=== PATIENT | male | born 1975 | race Caucasian/White ===

== ENCOUNTER 2016-08-21 07:57 | Emergency (ER) | payer SELFPAY ==
[2016-08-21 08:09] VITALS: TEMP 98.9
[2016-08-21] MEDS ORDERED: KETOROLAC 60 MG/2 ML VIAL IM STA (08:37)
--- NOTE | 2016-08-21 08:37 | ED ---
General Adult HPI - General Chief complaint: Skin/Abscess/Foreign Body Stated complaint: ABSCESS IN PELVIC AREA Time Seen by Provider: 08/21/16 08:16 Source: patient, RN notes reviewed Mode of arrival: ambulatory Limitations: no limitations - History of Present Illness Initial comments: Patient 41-year-old male who presents emergency room today with a chief complaint of abscess located to the suprapubic area. Does admit that his had multiple abscesses in the past has had MRSA. Does admit that this started 4 days ago small bump was gotten much larger over the last 2 days. Patient does admit that he's been trying some drainage out of the area with little relief. Patient does admit to pain locally but denies any other complaints or symptoms. Patient denies any recent fever, chills, shortness of breath, chest pain, back pain, abdominal pain, nausea or vomiting, numbness or tingling, dysuria or hematuria, constipation or diarrhea, headaches or visual changes, or any other complaints. - Related Data Previous Rx's Medication Instructions Recorded Naproxen [Naprosyn] 500 mg PO Q12HR #24 tab 06/28/15 Naproxen [Naprosyn] 500 mg PO Q12HR #24 tab 06/28/15 Sulfamethox-Tmp 800-160Mg [Bactrim 2 each PO Q12HR #40 tab 06/28/15 DS 800-160 mg] Sulfamethox-Tmp 800-160Mg [Bactrim 2 each PO Q12HR #40 tab 06/28/15 DS 800-160 mg] Ibuprofen [Motrin] 800 mg PO Q6HR PRN #30 tab 08/21/16 Sulfamethox-Tmp 800-160Mg [Bactrim 1 tab PO Q12HR #28 tab 08/21/16 DS 800-160 mg] Allergies Allergy/AdvReac Type Severity Reaction Status Date / Time No Known Allergies Allergy Verified 08/21/16 08:09 Review of Systems ROS Statement: Those systems with pertinent positive or pertinent negative responses have been documented in the HPI. ROS Other: All systems not noted in ROS Statement are negative. Past Medical History Additional Past Medical History / Comment(s): liver failure History of Any Multi-Drug Resistant Organisms: MRSA Date of last positivie culture/infection: 06/28/15 MDRO Source:: left second finger Past Surgical History: Tonsillectomy Past Psychological History: No Psychological Hx Reported Smoking Status: Current every day smoker Past Alcohol Use History: None Reported Past Drug Use History: None Reported General Exam Limitations: no limitations Course Vital Signs 08/21/16 08:06 Temperature 98.9 F Pulse Rate 90 Respiratory 20 Rate Blood Pressure 136/80 O2 Sat by Pulse 97 Oximetry Procedures - Procedures Initial comment: Procedure: Incision and drainage The skin overlying the abscess was prepped with Betadine, and anesthetized with 1% lidocaine without epinephrine. A #11 scalpel was then used to incise the abscess. Some purulent material was then extracted from the lesion. Iodoform packing gauze placed. Wound culture obtained. Gauze dressing placed on top, The patient tolerated the procedure well. Medical Decision Making - Medical Decision Making Patient's urinalysis unremarkable here in the emergency room culture currently pending. Patient mitts that he had some difficulty urinating earlier today and he thought may be due to the pressure of the abscess in this area. Patient's abscess drainage in the emergency room he tolerated procedure well. Started on antibiotics of Bactrim here in emergency room. Will be discharged home with ibuprofen. He does admit that he is a recovering alcoholic and does not want any stronger pain medicine. Patient will continue on antibiotics advised follow -up over the next 2 days. Advised return if any symptoms increase or worsen. Patient states understanding and is in agreement. Disposition Clinical Impression: Suprapubic abscess Disposition: HOME SELF-CARE Condition: Good Instructions: Abscess (ED) Additional Instructions: Please follow-up family doctor over the next days return here to emergency room symptoms increase or worsen. Please continue antibiotics as prescribed and pain medication as needed. Prescriptions: Ibuprofen [Motrin] 800 mg PO Q6HR PRN #30 tab PRN Reason: Pain Sulfamethox-Tmp 800-160Mg [Bactrim DS 800-160 mg] 1 tab PO Q12HR #28 tab Referrals: None,Stated [Primary Care Provider] - 1-2 days Killian Guajardo MD [REFERRING] - 1-2 days Time of Disposition: 09:56
[2016-08-21] MEDS ORDERED: SULFAMETH-TMP DS STARTER PACK 2 TAB BTL PO STA (09:21)
[2016-08-21 09:46] LABS: Amorphous Sediment,Urine Occasional /hpf; Appearance,Urine Turbid (Clear); Bilirubin,Urine Negative (Negative); Glucose,Urine (UA) Negative (Negative); Ketones,Urine Negative (Negative); Leukocyte Esterase,Urine Trace (Negative); Mucus,Urine Occasional /hpf; Nitrite,Urine Negative (Negative); PH, Urine 6.5 (5.0-8.0); Particle Count 19197; Protein,Urine Trace (Negative); Specific Gravity,Urine 1.015 (1.001-1.035); Squamous Epithelial Cell,Urine 1 /hpf (0-4); UA Billing (MACRO vs. MICRO) MICRO; Urobilinogen,Urine <2.0 mg/dL (<2.0); WBC,Urine 3 /hpf (0-5)
[2016-08-21 10:11] VITALS: BP 132/81; PULSE 67; RESP 18
== END 2016-08-21 10:10 | disposition home or self-care (01) ==
LOC: EC 07:57
DX: L02.211 Cutaneous abscess of abdominal wall (principal); F17.200 Nicotine dependence, unspecified, uncomplicated; Z87.19 Personal history of other diseases of the digestive system; Z86.14 Personal history of Methicillin resistant Staphylococcus aureus infection
CPT/HCPCS: 81001; 87070; 87086; 87205; 99283; 10060; 96372; J1885; 87077; 87186

== ENCOUNTER 2018-02-05 06:22 | Inpatient (IN) | payer OTHER ==
[2018-02-05] MEDS ORDERED: SODIUM CHLORIDE 0.9% 500 ML IV STA (07:31)
[2018-02-05] MEDS ORDERED: SODIUM CHLORIDE 0.9% 1,000 ML IV STA ×2 (07:31→08:48)
[2018-02-05 07:51] LABS: Basophils % (A) 0 %; Eosinophils # (A) 0.2 k/uL (0-0.7); Eosinophils % (A) 2 %; HCT 44.7 % (39.0-53.0); HGB 15.5 gm/dL (13.0-17.5); Lymphocytes # (A) 1.4 k/uL (1.0-4.8); Lymphocytes % (A) 21 %; MCH 30.9 pg (25.0-35.0); MCHC 34.8 g/dL (31.0-37.0); MCV 88.7 fL (80.0-100.0); Mean Platelet Volume 7.8; Monocytes # (A) 0.4 k/uL (0-1.0); Monocytes % (A) 5 %; Neutrophils # (A) 4.6 k/uL (1.3-7.7); Neutrophils % (A) 70 %; Platelet Count 110 k/uL (150-450); RBC 5.04 m/uL (4.30-5.90); RDW 13.7 % (11.5-15.5); WBC 6.7 k/uL (3.8-10.6)
[2018-02-05 07:59] LABS: ALT 31 U/L (21-72); AST 28 U/L (17-59); Albumin 3.8 g/dL (3.5-5.0); Alcohol <10 mg/dL; Alkaline Phosphatase 85 U/L (38-126); Anion Gap 6 mmol/L; Blood Urea Nitrogen 11 mg/dL (9-20); Calcium 8.8 mg/dL (8.4-10.2); Carbon Dioxide 24 mmol/L (22-30); Chloride 111 mmol/L (98-107); Glucose 100 mg/dL (74-99); Lipase 919 U/L (23-300); Magnesium 1.9 mg/dL (1.6-2.3); Phosphorus 2.4 mg/dL (2.5-4.5); Potassium 4.1 mmol/L (3.5-5.1); Sodium 141 mmol/L (137-145); Total Bilirubin 0.9 mg/dL (0.2-1.3); Total Protein 6.5 g/dL (6.3-8.2)
[2018-02-05 08:01] LABS: INR 1.2 (<1.2); Partial Thromboplastin Time 24.4 sec (22.0-30.0); Prothrombin Time 11.2 sec (9.0-12.0)
[2018-02-05 08:08] LABS: Creatine Kinase 28 U/L (55-170)
[2018-02-05 08:21] LABS: Creatine Kinase MB 0.3 ng/mL (0.0-2.4); Troponin I <0.012 ng/mL (0.000-0.034)
--- NOTE | 2018-02-05 08:28 | ED ---
General Adult HPI - General Chief complaint: Recheck/Abnormal Lab/Rx Stated complaint: Feeling weak Time Seen by Provider: 02/05/18 07:23 Source: patient, RN notes reviewed, old records reviewed Mode of arrival: ambulatory Limitations: no limitations - History of Present Illness Initial comments: This is a 42-year-old male to the ER for evaluation. This patient presents today for evaluation regards to not feeling well. Patient has remote history of alcoholism and liver issues, will require. Patient states feels similar to then. He just feels weak lightheaded dizzy nauseous. Denies recent alcohol abuse or drug abuse he does states is been feeling sick and weak for about 3 days. Again no fever travel history or sick contacts - Related Data Previous Rx's Medication Instructions Recorded Naproxen [Naprosyn] 500 mg PO Q12HR #24 tab 06/28/15 Naproxen [Naprosyn] 500 mg PO Q12HR #24 tab 06/28/15 Sulfamethox-Tmp 800-160Mg [Bactrim 2 each PO Q12HR #40 tab 06/28/15 DS 800-160 mg] Sulfamethox-Tmp 800-160Mg [Bactrim 2 each PO Q12HR #40 tab 06/28/15 DS 800-160 mg] Ibuprofen [Motrin] 800 mg PO Q6HR PRN #30 tab 08/21/16 Sulfamethox-Tmp 800-160Mg [Bactrim 1 tab PO Q12HR #28 tab 08/21/16 DS 800-160 mg] Allergies Allergy/AdvReac Type Severity Reaction Status Date / Time No Known Allergies Allergy Verified 02/05/18 06:35 Review of Systems ROS Statement: Those systems with pertinent positive or pertinent negative responses have been documented in the HPI. ROS Other: All systems not noted in ROS Statement are negative. Past Medical History Additional Past Medical History / Comment(s): liver failure, ETOH History of Any Multi-Drug Resistant Organisms: MRSA Date of last positivie culture/infection: 08/21/16 MDRO Source:: Abdomen Past Surgical History: Tonsillectomy Past Psychological History: No Psychological Hx Reported Smoking Status: Current every day smoker Past Alcohol Use History: None Reported Past Drug Use History: None Reported General Exam Limitations: no limitations General appearance: alert, in no apparent distress Head exam: Present: atraumatic, normocephalic, normal inspection Eye exam: Present: normal appearance, PERRL, EOMI. Absent: scleral icterus, conjunctival injection, periorbital swelling ENT exam: Present: normal exam, mucous membranes moist Neck exam: Present: normal inspection. Absent: tenderness, meningismus, lymphadenopathy Respiratory exam: Present: normal lung sounds bilaterally. Absent: respiratory distress, wheezes, rales, rhonchi, stridor Cardiovascular Exam: Present: regular rate, normal rhythm, normal heart sounds. Absent: systolic murmur, diastolic murmur, rubs, gallop, clicks GI/Abdominal exam: Present: soft, normal bowel sounds. Absent: distended, tenderness, guarding, rebound, rigid Extremities exam: Present: normal inspection, full ROM, normal capillary refill. Absent: tenderness, pedal edema, joint swelling, calf tenderness Back exam: Present: normal inspection Neurological exam: Present: alert, oriented X3, CN II-XII intact Psychiatric exam: Present: normal affect, normal mood Skin exam: Present: warm, dry, intact, normal color. Absent: rash Course Vital Signs 02/05/18 02/05/18 02/05/18 06:31 07:50 09:11 Temperature 98.3 F Pulse Rate 88 65 76 Respiratory 18 16 18 Rate Blood Pressure 134/94 123/75 144/84 O2 Sat by Pulse 99 95 97 Oximetry - Reevaluation(s) Reevaluation #1: 02/05/18 08:40 Medical records reviewed EKG Findings - EKG Comments: EKG Findings:: AG shows sinus rhythm rate of 70, VA 136, QRS 92, QTc 455 Medical Decision Making - Medical Decision Making 42 male the ER for evaluation of not feeling right, difficulty with activities. Patient states does not feel well for 3 days, significant weakness. Patient has elevated ammonia, will treat appropriately, patient has no history of liver failure secondary to alcohol abuse. Patient also has abdominal pain with nausea vomiting, elevated lipase, will admit for IV resuscitation - Lab Data Result diagrams: 02/05/18 07:07 02/05/18 07:07 Lab Results 02/05/18 02/05/18 02/05/18 Range/Units 07:07 07:07 07:07 WBC (3.8-10.6) k/uL RBC (4.30-5.90) m/uL Hgb (13.0-17.5) gm/dL Hct (39.0-53.0) % MCV (80.0-100.0) fL MCH (25.0-35.0) pg MCHC (31.0-37.0) g/dL RDW (11.5-15.5) % Plt Count (150-450) k/uL Neutrophils % % Lymphocytes % % Monocytes % % Eosinophils % % Basophils % % Neutrophils # (1.3-7.7) k/uL Lymphocytes # (1.0-4.8) k/uL Monocytes # (0-1.0) k/uL Eosinophils # (0-0.7) k/uL Basophils # (0-0.2) k/uL PT (9.0-12.0) sec INR (<1.2) APTT (22.0-30.0) sec Sodium 141 (137-145) mmol/L Potassium 4.1 (3.5-5.1) mmol/L Chloride 111 H (98-107) mmol/L Carbon Dioxide 24 (22-30) mmol/L Anion Gap 6 mmol/L BUN 11 (9-20) mg/dL Creatinine 0.67 (0.66-1.25) mg/dL Est GFR (CKD-EPI)AfAm >90 (>60 ml/min/1.73 sqM) Est GFR (CKD-EPI)NonAf >90 (>60 ml/min/1.73 sqM) Glucose 100 H (74-99) mg/dL Calcium 8.8 (8.4-10.2) mg/dL Phosphorus 2.4 L (2.5-4.5) mg/dL Magnesium 1.9 (1.6-2.3) mg/dL Total Bilirubin 0.9 (0.2-1.3) mg/dL AST 28 (17-59) U/L ALT 31 (21-72) U/L Alkaline Phosphatase 85 (38-126) U/L Ammonia 67 H (<30) umol/L Total Creatine Kinase 28 L (55-170) U/L CK-MB (CK-2) 0.3 (0.0-2.4) ng/mL CK-MB (CK-2) Rel Index 1.1 Troponin I <0.012 (0.000-0.034) ng/mL Total Protein 6.5 (6.3-8.2) g/dL Albumin 3.8 (3.5-5.0) g/dL Lipase 919 H (23-300) U/L TSH 1.750 (0.465-4.680) mIU/L Serum Alcohol <10 mg/dL 02/05/18 02/05/18 Range/Units 07:07 07:07 WBC 6.7 (3.8-10.6) k/uL RBC 5.04 (4.30-5.90) m/uL Hgb 15.5 (13.0-17.5) gm/dL Hct 44.7 (39.0-53.0) % MCV 88.7 (80.0-100.0) fL MCH 30.9 (25.0-35.0) pg MCHC 34.8 (31.0-37.0) g/dL RDW 13.7 (11.5-15.5) % Plt Count 110 L (150-450) k/uL Neutrophils % 70 % Lymphocytes % 21 % Monocytes % 5 % Eosinophils % 2 % Basophils % 0 % Neutrophils # 4.6 (1.3-7.7) k/uL Lymphocytes # 1.4 (1.0-4.8) k/uL Monocytes # 0.4 (0-1.0) k/uL Eosinophils # 0.2 (0-0.7) k/uL Basophils # 0.0 (0-0.2) k/uL PT 11.2 (9.0-12.0) sec INR 1.2 H (<1.2) APTT 24.4 (22.0-30.0) sec Sodium (137-145) mmol/L Potassium (3.5-5.1) mmol/L Chloride (98-107) mmol/L Carbon Dioxide (22-30) mmol/L Anion Gap mmol/L BUN (9-20) mg/dL Creatinine (0.66-1.25) mg/dL Est GFR (CKD-EPI)AfAm (>60 ml/min/1.73 sqM) Est GFR (CKD-EPI)NonAf (>60 ml/min/1.73 sqM) Glucose (74-99) mg/dL Calcium (8.4-10.2) mg/dL Phosphorus (2.5-4.5) mg/dL Magnesium (1.6-2.3) mg/dL Total Bilirubin (0.2-1.3) mg/dL AST (17-59) U/L ALT (21-72) U/L Alkaline Phosphatase (38-126) U/L Ammonia (<30) umol/L Total Creatine Kinase (55-170) U/L CK-MB (CK-2) (0.0-2.4) ng/mL CK-MB (CK-2) Rel Index Troponin I (0.000-0.034) ng/mL Total Protein (6.3-8.2) g/dL Albumin (3.5-5.0) g/dL Lipase (23-300) U/L TSH (0.465-4.680) mIU/L Serum Alcohol mg/dL Disposition Clinical Impression: Hyperammonemia, Liver failure, Hepatic encephalopathy, Weakness, Pancreatitis Disposition: ADMITTED IP TO THIS [facility] Condition: Good Is patient prescribed a controlled substance at d/c from ED?: No Referrals: None,Stated [Primary Care Provider] - 1-2 days
[2018-02-05] MEDS ORDERED: ONDANSETRON 4 MG/2 ML VIAL IVP STA (08:48)
[2018-02-05] MEDS ORDERED: LACTULOSE 20 GM/30 ML CUP PO ONE (08:48)
[2018-02-05] MEDS ORDERED: PANTOPRAZOLE 40 MG/10 ML VIAL IVP STA (08:48)
[2018-02-05] MEDS ORDERED: ONDANSETRON 4 MG/2 ML VIAL IVP PRN (09:36)
[2018-02-05] MEDS ORDERED: THIAMINE 100 MG/ML 2 ML VIAL IM STA (09:38)
[2018-02-05] MEDS ORDERED: LORazepam 2 MG/ML INJ IV PRN ×3 (09:38)
[2018-02-05 10:20] LABS: Appearance,Urine Cloudy (Clear); Bilirubin,Urine Negative (Negative); Blood,Urine Large (Negative); Color,Urine Dark Brown; Glucose,Urine (UA) Negative (Negative); Ketones,Urine Negative (Negative); Leukocyte Esterase,Urine Large (Negative); Mucus,Urine Rare /hpf; Nitrite,Urine Negative (Negative); PH, Urine 6.5 (5.0-8.0); Protein,Urine 1+ (Negative); RBC,Urine >182 /hpf (0-5); Specific Gravity,Urine 1.017 (1.001-1.035); WBC,Urine >182 /hpf (0-5)
[2018-02-05] MEDS ORDERED: diphenhydrAMINE 25 MG CAP PO PRN (11:33)
[2018-02-05] MEDS: cefTRIAXone IN SWFI 1,000 MG/10 ML SYRINGE IVP SCH (12:41)
[2018-02-05] MEDS: MULTIVITAMINS, THERA 1 EACH TAB PO SCH (12:41)
[2018-02-05 13:40] LABS: Amphetamine Screen,Urine Not Detected (NotDetected); Barbiturate Screen,Urine Not Detected (NotDetected); Benzodiazepines Screen,Urine Not Detected (NotDetected); Cocaine Screen,Urine Not Detected (NotDetected); Methadone Screen, Urine Not Detected (NotDetected); Opiate Screen,Urine Not Detected (NotDetected); Oxycodone Screen, Urine Not Detected (NotDetected); Phencyclidine Screen,Urine Not Detected (NotDetected); Tricyclic Antidepressant,Urine Not Detected (NotDetected); Urn Cannabinoid Scrn Not Detected (NotDetected)
[2018-02-05] MEDS ORDERED: ACETAMINOPHEN TAB 500 MG TAB PO PRN (14:44)
[2018-02-05] MEDS ORDERED: TEMAZEPAM 15 MG CAP PO PRN (14:44)
[2018-02-05] MEDS: SODIUM CHLORIDE 0.9% 1,000 ML IV SCH (16:18)
[2018-02-05] MEDS: THIAMINE 100 MG TAB PO SCH (16:18)
--- NOTE | 2018-02-05 18:30 | HP ---
HISTORY AND PHYSICAL DATE OF SERVICE: 02/05/2018 CHIEF COMPLAINTS: General weakness. HISTORY OF PRESENT ILLNESS: This 42-year-old gentleman with a past medical history of liver failure, history of EtOH MRSA, not being followed by primary care physician in the outpatient setting, presented complaining of generalized weakness and tired. The patient had remote history of alcohol intake and the patient was found to ammonia 67. Patient was admitted to the hospital for further evaluation and treatment. Patient also had features of UTI also. There is no history of fever, rigors. No history of headache, loss of consciousness or seizures. PAST MEDICAL HISTORY: Of liver failure, ETOH. History of MRSA. History of tonsillectomy. MEDICATIONS PRIOR TO ADMISSION: Include: 1. Benadryl 50 mg q.h.s. p.r.n. 2. Tumeric 500 mg p.o. daily. 3. Motrin 200 mg t.i.d. p.r.n. ALLERGIES: None. FAMILY HISTORY: No history of heart disease or strokes in the family. SOCIAL HISTORY: History of smoking. No history of current alcohol. REVIEW OF SYSTEMS: ENT: No diminished hearing or vision. CARDIOVASCULAR: No angina or palpitations. RESPIRATORY: As mentioned earlier. GI: No nausea or vomiting. : No dysuria. CENTRAL NERVOUS SYSTEM: No numbness or weakness. ALLERGY/IMMUNOLOGY: No asthma or hayfever. MUSCULOSKELETAL as mentioned earlier. HEMATOLOGY/ONCOLOGY: No history of anemia. ENDOCRINE: No history of diabetes or hypothyroidism. CONSTITUTIONAL: As mentioned earlier. Dermatology: Negative. Rheumatology: Negative. Psychiatry: As mentioned earlier. PHYSICAL EXAMINATION: GENERAL: The patient is alert and oriented times three. VITAL SIGNS: The pulse is 70, blood pressure 139/85, respirations 16, temperature 97.9, pulse ox 98 percent on room air. HEENT: Conjunctivae normal. Oral mucosa moist. NECK is no jugular venous distention. No carotid bruit. No lymph node enlargement. Cardiovascular system: S1, S2 muffled. No S3, no S4. RESPIRATORY: Breath sounds diminished in the bases. No rhonchi. No crackles. ABDOMEN: Soft, nontender. No mass palpable. No hepatosplenomegaly. LEGS: No edema. No swelling. NERVOUS SYSTEM: Higher functions as mentioned earlier. Moves all 4 limbs. No focal motor and sensory deficits. Dermatology: Negative. Rheumatology: Negative. Psychiatry: As mentioned earlier. Skin: No ulcer, rashes or bleeding. LABS: WBC 6.7, hemoglobin 15.5, platelets 110. Sodium 141, potassium 4.1. UA noted. ASSESSMENT: 1. Generalized weakness. Possible acute on chronic metabolic encephalopathy. 2. History of chronic liver disease, history of ETOH. 3. History of thrombocytopenia. 4. History of liver failure. 5. History of MRSA. 6. History of continued ongoing nicotine dependence. RECOMMENDATIONS AND DISCUSSION: In this 43-year-old gentleman who presented with multiple complex medical issues, we will monitor the patient closely, continue the current medications, management and symptomatic treatment. Otherwise, at this time, I would also recommend gastroenterology consultation. Otherwise monitor ammonia and lactulose. Guarded prognosis because of multiple complex medical conditions. Further recommendations to follow. Lactulose to be given at least to obtain 2-3 bowel movements per day. MMRAMONL / CARLOSN: [id number] /
[2018-02-05] MEDS: LACTULOSE 20 GM/30 ML CUP PO SCH (21:06)
[2018-02-06] MEDS: SODIUM CHLORIDE 0.9% 1,000 ML IV SCH ×2 (06:42→16:44)
[2018-02-06] MEDS: PANTOPRAZOLE 40 MG/10 ML VIAL IVP SCH (07:53)
[2018-02-06] MEDS: cefTRIAXone IN SWFI 1,000 MG/10 ML SYRINGE IVP SCH (07:53)
[2018-02-06] MEDS: MULTIVITAMINS, THERA 1 EACH TAB PO SCH (07:53)
[2018-02-06] MEDS: LACTULOSE 20 GM/30 ML CUP PO SCH ×2 (07:53→13:04)
[2018-02-06] MEDS: THIAMINE 100 MG TAB PO SCH ×2 (07:54→16:42)
[2018-02-06 08:28] LABS: Basophils % (A) 1 %; Eosinophils # (A) 0.1 k/uL (0-0.7); Eosinophils % (A) 2 %; HCT 41.8 % (39.0-53.0); HGB 14.4 gm/dL (13.0-17.5); Lymphocytes # (A) 1.1 k/uL (1.0-4.8); Lymphocytes % (A) 19 %; MCH 30.6 pg (25.0-35.0); MCHC 34.4 g/dL (31.0-37.0); Mean Platelet Volume 7.8; Monocytes # (A) 0.3 k/uL (0-1.0); Monocytes % (A) 6 %; Neutrophils # (A) 4.1 k/uL (1.3-7.7); Neutrophils % (A) 71 %; RBC 4.69 m/uL (4.30-5.90); RDW 13.4 % (11.5-15.5); WBC 5.8 k/uL (3.8-10.6)
[2018-02-06 08:31] LABS: Platelet Count 95 k/uL (150-450)
[2018-02-06 08:37] LABS: ALT 30 U/L (21-72); AST 25 U/L (17-59); Albumin 3.3 g/dL (3.5-5.0); Alkaline Phosphatase 76 U/L (38-126); Anion Gap 4 mmol/L; Blood Urea Nitrogen 9 mg/dL (9-20); Calcium 8.1 mg/dL (8.4-10.2); Carbon Dioxide 23 mmol/L (22-30); Chloride 115 mmol/L (98-107); Glucose 90 mg/dL (74-99); Potassium 4.1 mmol/L (3.5-5.1); Sodium 142 mmol/L (137-145); Total Bilirubin 0.7 mg/dL (0.2-1.3); Total Protein 5.8 g/dL (6.3-8.2)
--- NOTE | 2018-02-06 11:56 | XR ---
EXAMINATION TYPE: XR chest 1V portable DATE OF EXAM: 02/06/2018 CLINICAL HISTORY: Difficulty breathing and CHF. Pancreatitis. TECHNIQUE: Single AP portable upright view of the chest is obtained. COMPARISON: Chest x-ray from one day earlier FINDINGS: There is no focal air space opacity, pleural effusion, or pneumothorax seen. The cardiac silhouette size is within normal limits. The osseous structures are intact. IMPRESSION: No acute process.
--- NOTE | 2018-02-06 17:17 | P.PN ---
Subjective Progress Note Date: 02/06/18 Progress note being dictated for Dr. Coto Interval history: This is a 42-year-old gentleman admitted with generalized weakness, acute on chronic metabolic encephalopathy, elevated ammonia with history of chronic liver disease, history of EtOH abuse, acute UTI and multiple other medical issues. Afebrile, normal WBC, urine culture pending. Maintained on empiric antibiotics. Continues on lactulose with ammonia improving. Elevated lipase on admission in the 900s. GI consult in place with recommendations pending. Ambulating to and from bathroom, tolerating exertion well. Objective - Vital Signs Vital signs: Vital Signs Temp 97.2 F L 02/06/18 15:00 Pulse 80 02/06/18 15:00 Resp 17 02/06/18 15:47 BP 113/69 02/06/18 15:00 Pulse Ox 97 02/06/18 15:00 Intake & Output 02/05/18 02/06/18 02/06/18 18:59 06:59 18:59 Intake Total 200 200 Output Total 500 500 Balance -300 -300 Weight 90.718 kg Intake: Amount of Fluid Infused ( 200 ml) Oral 200 Output: Urine 500 500 Other: Voiding Method Toilet Toilet Toilet # Voids 2 2 # Bowel Movements 2 1 - Exam PHYSICAL EXAM: VITAL SIGNS: As above GENERAL: Sitting up at side of bed, no acute distress. HEENT: Conjunctivae normal. eyes normal. NECK: No JVD. No thyroid enlargement. No LNs CARDIOVASCULAR: S1, S2 muffled. No murmur RESPIRATION: Breath sounds diminished in the bases.No rhonchi or crackles. No bronchial breathing. ABDOMEN: Soft, nontender . No guarding. no masses palpable. No hepatosplenomegaly .Bowel sounds heard. LEGS: No edema. no swelling. PSYCHIATRY: Alert and oriented -3, mood and affect normal. NERVOUS SYSTEM: Cranial N 2-12 grossly normal. Moves all 4 limbs. Diffuse weakness No focal deficits. Skin: no ulcer no rash Joints: No active swelling. No inflammation. Lymphatic system. No LN neck axilla or groin. - Labs CBC & Chem 7: 02/06/18 07:57 02/06/18 07:57 Labs: Abnormal Lab Results - Last 24 Hours (Table) 02/06/18 02/06/18 02/06/18 Range/Units 07:57 07:57 07:57 Plt Count 95 L (150-450) k/uL Chloride 115 H (98-107) mmol/L Creatinine 0.63 L (0.66-1.25) mg/dL Calcium 8.1 L (8.4-10.2) mg/dL Ammonia 39 H (<30) umol/L Total Protein 5.8 L (6.3-8.2) g/dL Albumin 3.3 L (3.5-5.0) g/dL Microbiology - Last 24 Hours (Table) 02/05/18 11:56 Blood Culture - Preliminary Blood No Growth after 24 hours 02/05/18 10:04 Urine Culture - Preliminary Urine,Voided Assessment and Plan Assessment: 1. Generalized weakness, possible acute on chronic metabolic encephalopathy 2. Chronic liver disease, history of EtOH abuse 3. Continued ongoing nicotine dependence 4. History of liver failure 5. History of MRSA Plan: Continue on current medication regime ,monitoring and symptomatic treatment. Maintain on lactulose, titrating to 2-3 bowel movements daily. GI consult in place with recommendations pending. Discharge planning in progress. The impression and plan of care has been dictated as directed. : I performed a history and examination of this patient, discussed the same with the dictator. I agree with the dictator's note ,documented as a scribe. Any additional findings or plans will be noted.
--- NOTE | 2018-02-06 17:55 | P.CONS ---
History of Present Illness - Reason for Consult Consult date: 02/06/18 History of acute liver failure, confusion Requesting physician: Aurora Coto - Chief Complaint Weak, lightheaded, dizzy and nauseated - History of Present Illness The patient is a 42-year-old male with a prior history of heavy alcohol use resulting in hospitalization for acute alcoholic hepatitis who is currently been abstinent from alcohol use for years, he presents with complaints of not feeling well. Patient reports that over the past 3 days he has been weak, lightheaded, and dizzy. He reports hypersomnolence and that he had been sleeping for long periods causing him to miss work. The patient reports associated nausea without vomiting. He denies any current alcohol use, no sick contacts, travel or unusual foods. He said no vomiting, no change in his bowel habits and no abdominal pain. The patient has however reported a decrease in his appetite. On presentation the patient had a normal INR of 1.2, total bilirubin 0.9, alkaline phosphatase 85, AST 27 and ALP 31 with a negative talk screening. The patient was found to have a mildly elevated ammonia of 67 and a elevated lipase of 919. The patient has been treated with lactulose and reports feeling better. He is tolerating his diet, but still not eating as much as normal. The patient has not followed up after being treated for alcoholic hepatitis in the past. He is a current smoker. He does report daily use of Motrin, twice daily. Review of Systems REVIEW OF SYSTEMS: CARDIOPULMONARY: No chest pain or shortness of breath. GENITOURINARY: No dysuria or hematuria. MUSCULOSKELETAL: Unremarkable. SKIN: Patient has tattoos on his chest and arms. He also has a rash on his chest. ENDOCRINE: Unremarkable. PSYCHIATRIC: Unremarkable. NEUROLOGY: Somnolence, dizziness. ENT: Vision unremarkable. CONSTITUTIONAL: No recent weight loss. No fever, chills, night sweats. Past Medical History Additional Past Medical History / Comment(s): liver failure, ETOH History of Any Multi-Drug Resistant Organisms: MRSA Year Discovered:: 08/21/16 MDRO Source:: Abdomen Past Surgical History: Tonsillectomy Past Psychological History: No Psychological Hx Reported Smoking Status: Current every day smoker Past Alcohol Use History: None Reported Past Drug Use History: None Reported Medications and Allergies Home Medications Medication Instructions Recorded Confirmed Type Ibuprofen [Motrin Ib] 800 mg PO TID PRN 02/05/18 02/05/18 History Turmeric Root Extract [Turmeric] 500 mg PO DAILY 02/05/18 02/05/18 History diphenhydrAMINE HCL [Benadryl] 50 mg PO HS PRN 02/05/18 02/05/18 History Allergies Allergy/AdvReac Type Severity Reaction Status Date / Time No Known Allergies Allergy Verified 02/05/18 10:22 Physical Exam Vitals: Vital Signs Temp Pulse Resp BP Pulse Ox 02/06/18 15:47 17 02/06/18 15:00 97.2 F L 80 17 113/69 97 02/06/18 07:00 97.2 F L 67 18 127/74 97 02/05/18 23:00 97.5 F L 67 18 108/67 98 Intake and Output 02/06/18 02/06/18 02/06/18 06:59 14:59 22:59 Intake Total 200 Output Total 500 Balance -300 Intake: Oral 200 Output: Urine 500 Other: Voiding Method Toilet Toilet # Voids 2 2 # Bowel Movements 1 Weight 90.718 kg 90.718 kg On physical examination, patient appears comfortable in no apparent distress. Vital signs are stable. HEENT: Unremarkable. Conjunctivae pink. Sclerae anicteric. Oral cavity no lesions. NECK: No JVD or lymph node enlargement. CHEST: Clear to auscultation. HEART: Regular rate and rhythm. ABDOMEN: Soft. Bowel sounds are positive. No organomegaly. EXTREMITIES: No pedal edema. SKIN: No rashes. NEUROLOGIC: Alert and oriented x3. No focal deficits. No asterixis. Results CBC & Chem 7: 02/06/18 07:57 02/06/18 07:57 Labs: Abnormal Lab Results - Last 24 Hours (Table) 02/06/18 02/06/18 02/06/18 Range/Units 07:57 07:57 07:57 Plt Count 95 L (150-450) k/uL Chloride 115 H (98-107) mmol/L Creatinine 0.63 L (0.66-1.25) mg/dL Calcium 8.1 L (8.4-10.2) mg/dL Ammonia 39 H (<30) umol/L Total Protein 5.8 L (6.3-8.2) g/dL Albumin 3.3 L (3.5-5.0) g/dL Microbiology - Last 24 Hours (Table) 02/05/18 11:56 Blood Culture - Preliminary Blood No Growth after 24 hours 02/05/18 10:04 Urine Culture - Preliminary Urine,Voided Assessment and Plan (1) Hyperammonemia Narrative/Plan: Unclear if this is secondary to hepatic encephalopathy as the patient's INR and bilirubin are consistent with retained synthetic function of the liver, however depressed platelets do suggest some degree of portal hypertension. The patient also reports that his symptoms were similar to prior episodes of encephalopathy with hypersomnolence and fatigue. He is also improved on treatment with lactulose therapy, and it is therefore reasonable to continue current management. Current Visit: Yes Status: Acute Code(s): E72.20 - DISORDER OF UREA CYCLE METABOLISM, UNSPECIFIED SNOMED Code(s): 9205071 (2) Elevated lipase Narrative/Plan: Unknown etiology in a patient who does not report typical pain associated with pancreatitis. Elevation also be caused by trauma, pancreatic instrumentation, medications, neoplasm, however the patient's history is not consistent with any of these. Will repeat lipase level and consider further imaging if it remains elevated. Current Visit: Yes Status: Acute Code(s): R74.8 - ABNORMAL LEVELS OF OTHER SERUM ENZYMES SNOMED Code(s): 462869652 (3) History of acute alcoholic hepatitis Narrative/Plan: Patient has history of alcohol hepatitis, however at this time bilirubin and INR are not consistent with a cirrhotic liver. However thrombocytopenia was suggest some degree of portal hypertension. This has been discussed with the patient would benefit from a fibroscan as an outpatient in order to diagnose any underlying hepatic fibrosis in the setting of heavy alcohol use in the past. Current Visit: Yes Status: Acute Code(s): Z87.19 - PERSONAL HISTORY OF OTHER DISEASES OF THE DIGESTIVE SYSTEM SNOMED Code(s): 817934041 (4) History of alcohol abuse Narrative/Plan: Currently abstinent (patient states he has not drank alcohol in years). Current Visit: Yes Status: Acute Code(s): Z87.898 - PERSONAL HISTORY OF OTHER SPECIFIED CONDITIONS SNOMED Code(s): 174425839 Plan: Continue supportive care Okay for diet We will repeat lipase, the patient will again be cautioned on any medications which are associated with elevation in its level. Can consider further imaging if lipase remains elevated. -Continue lactulose, titrated to 2-3 bowel movements daily Outpatient follow-up, would benefit from fibroscan -Continue alcohol abstinence -Thank you for the opportunity to participate in the care of this patient we will continue to follow
[2018-02-06 22:41] VITALS: RESP 16
[2018-02-07] MEDS: SODIUM CHLORIDE 0.9% 1,000 ML IV SCH (04:44)
[2018-02-07 06:08] VITALS: BP 109/77; PULSE 63; TEMP 97.3
[2018-02-07] MEDS: PANTOPRAZOLE 40 MG/10 ML VIAL IVP SCH (08:07)
[2018-02-07] MEDS: LACTULOSE 20 GM/30 ML CUP PO SCH (08:07)
[2018-02-07] MEDS: cefTRIAXone IN SWFI 1,000 MG/10 ML SYRINGE IVP SCH (08:24)
--- NOTE | 2018-02-07 08:33 | P.PN ---
<Anay Alvarez - Last Filed: 02/07/18 08:31> Subjective Progress Note Date: 02/07/18 Principal diagnosis: History of acute liver failure confusion Feels well. Denies abdominal pain. Tolerating diet. Ammonia normalized 17. Receiving antibiotics for UTI. Objective - Vital Signs Vital signs: Vital Signs Temp 97.3 F L 02/07/18 06:07 Pulse 63 02/07/18 06:07 Resp 16 02/07/18 06:07 BP 109/77 02/07/18 06:07 Pulse Ox 99 02/07/18 06:07 Intake & Output 02/06/18 02/07/18 02/07/18 18:59 06:59 18:59 Intake Total 200 Output Total 500 Balance -300 Weight 90.718 kg 90.718 kg Intake: Oral 200 Output: Urine 500 Other: Voiding Method Toilet Toilet # Voids 2 2 # Bowel Movements 1 - Exam General appearance: The patient is alert, oriented, in no acute distress. HET: Head is normocephalic and atraumatic. Pupils are equal and reactive. Oropharynx is clear without lesions. Neck: Supple without lymphadenopathy. Trachea midline. Heart: S1 S2. Regular rate and rhythm. Lungs: No crackles or wheezes are heard. Abdomen: Soft, nontender, nondistended with bowel sounds. No peritoneal signs. No palpable organomegaly or masses. Extremities: Normal skin color and turgor. No cyanosis, rash, ulceration, clubbing, or edema. Radial and pedal pulses are 2/4 bilaterally. Neurological: No focal deficits. Strength and sensation are grossly intact. - Labs CBC & Chem 7: 02/06/18 07:57 02/06/18 07:57 Labs: Abnormal Lab Results - Last 24 Hours (Table) 02/06/18 02/06/18 Range/Units 07:57 07:57 Plt Count 95 L (150-450) k/uL Chloride 115 H (98-107) mmol/L Creatinine 0.63 L (0.66-1.25) mg/dL Calcium 8.1 L (8.4-10.2) mg/dL Total Protein 5.8 L (6.3-8.2) g/dL Albumin 3.3 L (3.5-5.0) g/dL Microbiology - Last 24 Hours (Table) 02/05/18 11:56 Blood Culture - Preliminary Blood No Growth after 24 hours Assessment and Plan (1) Hyperammonemia Status: Acute Code(s): E72.20 - DISORDER OF UREA CYCLE METABOLISM, UNSPECIFIED SNOMED Code(s): 5648847 (2) Elevated lipase Status: Acute Code(s): R74.8 - ABNORMAL LEVELS OF OTHER SERUM ENZYMES SNOMED Code(s): 099500095 (3) History of acute alcoholic hepatitis Status: Acute Code(s): Z87.19 - PERSONAL HISTORY OF OTHER DISEASES OF THE DIGESTIVE SYSTEM SNOMED Code(s): 186764717 (4) History of alcohol abuse Status: Acute Code(s): Z87.898 - PERSONAL HISTORY OF OTHER SPECIFIED CONDITIONS SNOMED Code(s): 701472564 Plan: 1. Ammonia has normalized. Diet as tolerated. Agreeable for discharge as long as morning chemistries are stable. Continue lactulose titrate to 3 bowel movements daily. Return to office in 2 weeks for reevaluation. Continue alcohol abstinence. We'll follow as needed. Assessment and plan a care discussed with Dr. Cook <Nithin Cook - Last Filed: 02/10/18 10:23> Objective - Vital Signs Vital signs: Vital Signs Temp 97.3 F L 02/07/18 06:07 Pulse 63 02/07/18 06:07 Resp 16 02/07/18 06:07 BP 109/77 02/07/18 06:07 Pulse Ox 99 02/07/18 06:07 - Labs CBC & Chem 7: 02/07/18 07:53 02/07/18 07:53 Labs: Microbiology - Last 24 Hours (Table) 02/05/18 11:56 Blood Culture - Preliminary Blood No Growth after 96 hours Assessment and Plan (1) Hyperammonemia Status: Acute Code(s): E72.20 - DISORDER OF UREA CYCLE METABOLISM, UNSPECIFIED SNOMED Code(s): 6840702 (2) Elevated lipase Status: Acute Code(s): R74.8 - ABNORMAL LEVELS OF OTHER SERUM ENZYMES SNOMED Code(s): 547445960 (3) History of acute alcoholic hepatitis Status: Acute Code(s): Z87.19 - PERSONAL HISTORY OF OTHER DISEASES OF THE DIGESTIVE SYSTEM SNOMED Code(s): 763574676 (4) History of alcohol abuse Status: Acute Code(s): Z87.898 - PERSONAL HISTORY OF OTHER SPECIFIED CONDITIONS SNOMED Code(s): 725517353 Plan: The patient has been seen and evaluated, and the plan of care discussed. I agree with the above recommendations and assessment and plan.
[2018-02-07 08:44] LABS: Basophils % (A) 0 %; Eosinophils # (A) 0.1 k/uL (0-0.7); Eosinophils % (A) 2 %; HCT 39.9 % (39.0-53.0); HGB 13.7 gm/dL (13.0-17.5); Lymphocytes # (A) 1.1 k/uL (1.0-4.8); Lymphocytes % (A) 18 %; MCH 31.1 pg (25.0-35.0); MCHC 34.4 g/dL (31.0-37.0); MCV 90.4 fL (80.0-100.0); Mean Platelet Volume 8.7; Monocytes # (A) 0.3 k/uL (0-1.0); Monocytes % (A) 5 %; Neutrophils # (A) 4.4 k/uL (1.3-7.7); Neutrophils % (A) 73 %; RBC 4.41 m/uL (4.30-5.90); RDW 13.4 % (11.5-15.5); WBC 5.9 k/uL (3.8-10.6)
[2018-02-07 08:53] LABS: Platelet Count 75 k/uL (150-450)
[2018-02-07 09:04] LABS: ALT 42 U/L (21-72); AST 35 U/L (17-59); Alkaline Phosphatase 71 U/L (38-126); Anion Gap 4 mmol/L; Blood Urea Nitrogen 8 mg/dL (9-20); Carbon Dioxide 23 mmol/L (22-30); Chloride 114 mmol/L (98-107); Glucose 80 mg/dL (74-99); Lipase 59 U/L (23-300); Potassium 4.2 mmol/L (3.5-5.1); Sodium 141 mmol/L (137-145); Total Bilirubin 1.1 mg/dL (0.2-1.3); Total Protein 5.4 g/dL (6.3-8.2)
[2018-02-07] MEDS: MULTIVITAMINS, THERA 1 EACH TAB PO SCH (12:31)
[2018-02-07] MEDS: THIAMINE 100 MG TAB PO SCH (12:31)
--- NOTE | 2018-02-08 06:09 | DS ---
DISCHARGE SUMMARY DATE OF SERVICE: 02/07/2018 FINAL DIAGNOSES: 1. Generalized weakness, possible acute on chronic metabolic encephalopathy, possible hepatic encephalopathy. 2. Chronic liver disease, history of EtOH abuse. 3. Continued ongoing nicotine dependence. 4. History of liver failure. 5. History of methicillin-resistant Staphylococcus aureus. DISCHARGE DISPOSITION: The patient will be discharged in stable condition with guarded prognosis. HISTORY OF PRESENT ILLNESS: This 42-year-old gentleman with a past medical history of multiple medical problems admitted with acute on chronic metabolic encephalopathy and history of EtOH abuse. The patient was treated symptomatically. Patient improved significantly. Ammonia improved from 67 to 39. The patient has also UTI. Patient is being discharged home in stable condition. DISCHARGE ADVICE: 1. Diet is cardiac diet. 2. Activity limited until followup. 3. Follow up with Dr. Jennifer Darnell in 2 to 3 days. 4. Follow up with the digital solution architect as recommended. Medications are: 1. Benadryl p.r.n. 50 mg at bedtime. 2. Turmeric as before. 3. Ceftin 500 mg p.o. b.i.d. for 5 days. 4. Lactulose 30 grams p.o. b.i.d. p.r.n. 5. Multivitamins 1 p.o. daily. 6. Thiamine 100 mg p.o. daily. Once again, the patient will be discharged in a stable condition with guarded prognosis. MMRAMONL / EFRAIN: [id number] /
== END 2018-02-07 14:36 | disposition home or self-care (01) | DRG 441 ==
LOC: EC 06:22 → 4MS4W 09:35
PROVIDERS: ADMIT Hospitalist; ATTEND Hospitalist
DX: K72.90 Hepatic failure, unspecified without coma (principal); G93.41 Metabolic encephalopathy; E72.20 Disorder of urea cycle metabolism, unspecified; N39.0 Urinary tract infection, site not specified; D69.6 Thrombocytopenia, unspecified; F10.10 Alcohol abuse, uncomplicated; F17.200 Nicotine dependence, unspecified, uncomplicated; G47.10 Hypersomnia, unspecified; K74.0 Hepatic fibrosis; Z86.14 Personal history of Methicillin resistant Staphylococcus aureus infection
CPT/HCPCS: 36415; 71045; 80053; 80306; 80320; 81001; 82140; 82550; 82553; 83690; 83735; 84100; 84443; 84484; 85025; 85610; 85730; 87040; 87077; 87086; 87186; 93005; 96361; 96374; 96375; 99285

== ENCOUNTER 2021-12-26 16:47 | Inpatient (IN) | payer OTHER ==
[2021-12-26] MEDS ORDERED: SODIUM CHLORIDE 0.9% 1,000 ML IV STA (16:58)
[2021-12-26] MEDS ORDERED: FOLIC ACID 1 MG TAB PO STA (17:06)
[2021-12-26] MEDS ORDERED: THIAMINE 100 MG/ML 2 ML VIAL IVP STA (17:06)
--- NOTE | 2021-12-26 17:06 | ED ---
Altered Mental Status HPI - General Chief Complaint: Altered Mental Status Stated Complaint: mental health Time Seen by Provider: 12/26/21 16:49 Source: EMS, RN notes reviewed Mode of arrival: EMS - History of Present Illness Initial Comments: This is a pleasant 46-year-old male history of polysubstance abuse. Patient presents to the emergency department today stating that he has been having delusions, auditory and visual hallucinations, and tremors. Patient uncertain if he used methamphetamine or cocaine yesterday. Patient states he usually drinks quite a bit of alcohol. He states he usually drinks 09/23/2023 ounce beers per day. States his last drink was about 48 hours ago. Patient denies any seizure activity. Patient states that he was not feeling safe at home and thought somebody may be after him. Patient ended up running from his apartment complex. Patient went to a local [employer] and was seen by local licensed loan officer assistant. He was advised that he come to the ER for evaluation. He is denying any suicidality or homicidality. No headache, no fever or chills, no changes in vision or hearing, no sore throat or difficulty with speech, no neck pain, no chest pain or shortness of breath, no abdominal pain, no nausea or vomiting, no changes in urination or bowel movements, no numbness or tingling, no extremity pain, no skin rashes or lesions. Patient does have superficial abrasions on both legs. - Related Data Home Medications Medication Instructions Recorded Confirmed No Known Home Medications 12/26/21 12/26/21 Allergies Allergy/AdvReac Type Severity Reaction Status Date / Time No Known Allergies Allergy Verified 12/26/21 18:14 Review of Systems ROS Statement: Those systems with pertinent positive or pertinent negative responses have been documented in the HPI. ROS Other: All systems not noted in ROS Statement are negative. Past Medical History Additional Past Medical History / Comment(s): liver failure, ETOH History of Any Multi-Drug Resistant Organisms: MRSA Date of last positivie culture/infection: 08/21/16 MDRO Source:: Abdomen Past Surgical History: Tonsillectomy Past Psychological History: No Psychological Hx Reported Smoking Status: Current every day smoker Past Alcohol Use History: Daily, Heavy Past Drug Use History: Cocaine, Marijuana, Methamphetamine General Exam - General Exam Comments Initial Comments: Anxious appearing 46-year-old male, does not appear to be ill or toxic. Vital signs reviewed General appearance: alert, anxious Head exam: Present: atraumatic, normocephalic, normal inspection Eye exam: Present: normal appearance, PERRL, EOMI. Absent: scleral icterus, conjunctival injection, periorbital swelling ENT exam: Present: normal exam, normal oropharynx, mucous membranes moist. Absent: mucous membranes dry Neck exam: Present: normal inspection, full ROM. Absent: tenderness, meningismus, lymphadenopathy Respiratory exam: Present: normal lung sounds bilaterally. Absent: respiratory distress, wheezes, rales, rhonchi, stridor Cardiovascular Exam: Present: regular rate, normal rhythm, normal heart sounds. Absent: systolic murmur, diastolic murmur, rubs, gallop, clicks GI/Abdominal exam: Present: soft, normal bowel sounds. Absent: distended, tenderness, guarding, rebound, rigid Extremities exam: Present: normal inspection, full ROM, normal capillary refill. Absent: tenderness, pedal edema, joint swelling, calf tenderness Back exam: Present: normal inspection Neurological exam: Present: alert, oriented X3, CN II-XII intact, other (Gen. tremor noted). Absent: motor sensory deficit Psychiatric exam: Present: agitated (Mild), anxious. Absent: homicidal ideation, suicidal ideation (Denies) Skin exam: Present: warm, dry, intact, normal color. Absent: rash Course Vital Signs 12/26/21 12/26/21 16:49 18:58 Temperature 98.3 F Pulse Rate 104 H 97 Respiratory 28 H 18 Rate Blood Pressure 129/95 127/75 O2 Sat by Pulse 98 97 Oximetry - Reevaluation(s) Reevaluation #1: 12/26/21 18:31 Medical record is reviewed Symptoms are improved here in the emergency department Patient is informed of results and questions answered Patient in no distress Medical Decision Making - Medical Decision Making Patient presents with agitation, anxiety, notable tremor, has been 48 hours since his last alcoholic drink. No history of alcohol abuse as well as other polysubstance abuse to include methamphetamine and cocaine. Having some delusions and hallucinations. Denying any suicidal ideation or homicidal shannan ation. Patient's initial CIWA score is 14 due to visual disturbance, auditory disturbances, tactile disturbances, agitation, anxiety, notable tremor, mild sweating. Patient presentation consistent with alcohol withdrawal. Workup, plan for admission. 5 mg of diazepam initially. Case discussed in detail with Dr. Patricio words admission of the patient for alcohol withdrawal, hypokalemia, and hyperammonemia The case was discussed in detail with ED attending physician. Presentation, findings, treatment plan discussed in detail. Reordering Clerk Dr. Freed - Lab Data Result diagrams: 12/26/21 17:19 12/26/21 17:19 Lab Results 12/26/21 12/26/21 12/26/21 Range/Units 17:19 17:19 17:19 WBC 3.9 (3.8-10.6) k/uL RBC 4.36 (4.30-5.90) m/uL Hgb 13.6 (13.0-17.5) gm/dL Hct 40.4 (39.0-53.0) % MCV 92.8 (80.0-100.0) fL MCH 31.3 (25.0-35.0) pg MCHC 33.8 (31.0-37.0) g/dL RDW 14.4 (11.5-15.5) % Plt Count 57 L (150-450) k/uL MPV 9.8 Neutrophils % 78 % Lymphocytes % 10 % Monocytes % 8 % Eosinophils % 1 % Basophils % 1 % Neutrophils # 3.0 (1.3-7.7) k/uL Lymphocytes # 0.4 L (1.0-4.8) k/uL Monocytes # 0.3 (0-1.0) k/uL Eosinophils # 0.0 (0-0.7) k/uL Basophils # 0.0 (0-0.2) k/uL Manual Slide Review Performed PT 13.5 H (9.0-12.0) sec INR 1.3 H (<1.2) Sodium (137-145) mmol/L Potassium (3.5-5.1) mmol/L Chloride (98-107) mmol/L Carbon Dioxide (22-30) mmol/L Anion Gap mmol/L BUN (9-20) mg/dL Creatinine (0.66-1.25) mg/dL Est GFR (CKD-EPI)AfAm (>60 ml/min/1.73 sqM) Est GFR (CKD-EPI)NonAf (>60 ml/min/1.73 sqM) Glucose (74-99) mg/dL Calcium (8.4-10.2) mg/dL Total Bilirubin (0.2-1.3) mg/dL Conjugated Bilirubin (0.0-0.3) mg/dL Unconjugated Bilirubin (0.0-1.1) mg/dL Delta Bilirubin (0.0-0.2) mg/dL AST (17-59) U/L ALT (4-49) U/L Alkaline Phosphatase (38-126) U/L Ammonia (<30) umol/L Troponin I (0.000-0.034) ng/mL Total Protein (6.3-8.2) g/dL Albumin (3.5-5.0) g/dL Urine Color Urine Appearance (Clear) Urine pH (5.0-8.0) Ur Specific [place] (1.001-1.035) Urine Protein (Negative) Urine Glucose (UA) (Negative) Urine Ketones (Negative) Urine Blood (Negative) Urine Nitrite (Negative) Urine Bilirubin (Negative) Urine Urobilinogen (<2.0) mg/dL Ur Leukocyte Esterase (Negative) Urine RBC (0-5) /hpf Urine WBC (0-5) /hpf Ur Squamous Epith Cells (0-4) /hpf Hyaline Casts (0-2) /lpf Urine Mucus (None) /hpf Salicylates mg/dL Urine Opiates Screen Not Detected (NotDetected) Ur Oxycodone Screen Not Detected (NotDetected) Urine Methadone Screen Not Detected (NotDetected) Ur Propoxyphene Screen Not Detected (NotDetected) Acetaminophen ug/mL Ur Barbiturates Screen Not Detected (NotDetected) U Tricyclic Antidepress Not Detected (NotDetected) Ur Phencyclidine Scrn Not Detected (NotDetected) Ur Amphetamines Screen Detected H (NotDetected) U Methamphetamines Scrn Detected H (NotDetected) U Benzodiazepines Scrn Not Detected (NotDetected) Urine Cocaine Screen Not Detected (NotDetected) U Marijuana (THC) Screen Detected H (NotDetected) Serum Alcohol mg/dL 12/26/21 12/26/21 12/26/21 Range/Units 17:19 17:19 17:19 WBC (3.8-10.6) k/uL RBC (4.30-5.90) m/uL Hgb (13.0-17.5) gm/dL Hct (39.0-53.0) % MCV (80.0-100.0) fL MCH (25.0-35.0) pg MCHC (31.0-37.0) g/dL RDW (11.5-15.5) % Plt Count (150-450) k/uL MPV Neutrophils % % Lymphocytes % % Monocytes % % Eosinophils % % Basophils % % Neutrophils # (1.3-7.7) k/uL Lymphocytes # (1.0-4.8) k/uL Monocytes # (0-1.0) k/uL Eosinophils # (0-0.7) k/uL Basophils # (0-0.2) k/uL Manual Slide Review PT (9.0-12.0) sec INR (<1.2) Sodium 136 L (137-145) mmol/L Potassium 3.0 L (3.5-5.1) mmol/L Chloride 102 (98-107) mmol/L Carbon Dioxide 18 L (22-30) mmol/L Anion Gap 16 mmol/L BUN 17 (9-20) mg/dL Creatinine 1.01 (0.66-1.25) mg/dL Est GFR (CKD-EPI)AfAm >90 (>60 ml/min/1.73 sqM) Est GFR (CKD-EPI)NonAf 88 (>60 ml/min/1.73 sqM) Glucose 84 (74-99) mg/dL Calcium 8.5 (8.4-10.2) mg/dL Total Bilirubin 2.5 H (0.2-1.3) mg/dL Conjugated Bilirubin 0.0 (0.0-0.3) mg/dL Unconjugated Bilirubin 1.8 H (0.0-1.1) mg/dL Delta Bilirubin 0.7 H (0.0-0.2) mg/dL AST 112 H (17-59) U/L ALT 75 H (4-49) U/L Alkaline Phosphatase 149 H (38-126) U/L Ammonia (<30) umol/L Troponin I <0.012 (0.000-0.034) ng/mL Total Protein 6.9 (6.3-8.2) g/dL Albumin 4.2 (3.5-5.0) g/dL Urine Color Yellow Urine Appearance Clear (Clear) Urine pH 6.0 (5.0-8.0) Ur Specific [place] 1.026 (1.001-1.035) Urine Protein 1+ H (Negative) Urine Glucose (UA) Negative (Negative) Urine Ketones 2+ H (Negative) Urine Blood Negative (Negative) Urine Nitrite Negative (Negative) Urine Bilirubin 1+ H (Negative) Urine Urobilinogen 3.0 (<2.0) mg/dL Ur Leukocyte Esterase Negative (Negative) Urine RBC 4 (0-5) /hpf Urine WBC 6 H (0-5) /hpf Ur Squamous Epith Cells <1 (0-4) /hpf Hyaline Casts 12 H (0-2) /lpf Urine Mucus Rare H (None) /hpf Salicylates <1.0 mg/dL Urine Opiates Screen (NotDetected) Ur Oxycodone Screen (NotDetected) Urine Methadone Screen (NotDetected) Ur Propoxyphene Screen (NotDetected) Acetaminophen <10.0 ug/mL Ur Barbiturates Screen (NotDetected) U Tricyclic Antidepress (NotDetected) Ur Phencyclidine Scrn (NotDetected) Ur Amphetamines Screen (NotDetected) U Methamphetamines Scrn (NotDetected) U Benzodiazepines Scrn (NotDetected) Urine Cocaine Screen (NotDetected) U Marijuana (THC) Screen (NotDetected) Serum Alcohol <10 mg/dL 12/26/21 Range/Units 17:19 WBC (3.8-10.6) k/uL RBC (4.30-5.90) m/uL Hgb (13.0-17.5) gm/dL Hct (39.0-53.0) % MCV (80.0-100.0) fL MCH (25.0-35.0) pg MCHC (31.0-37.0) g/dL RDW (11.5-15.5) % Plt Count (150-450) k/uL MPV Neutrophils % % Lymphocytes % % Monocytes % % Eosinophils % % Basophils % % Neutrophils # (1.3-7.7) k/uL Lymphocytes # (1.0-4.8) k/uL Monocytes # (0-1.0) k/uL Eosinophils # (0-0.7) k/uL Basophils # (0-0.2) k/uL Manual Slide Review PT (9.0-12.0) sec INR (<1.2) Sodium (137-145) mmol/L Potassium (3.5-5.1) mmol/L Chloride (98-107) mmol/L Carbon Dioxide (22-30) mmol/L Anion Gap mmol/L BUN (9-20) mg/dL Creatinine (0.66-1.25) mg/dL Est GFR (CKD-EPI)AfAm (>60 ml/min/1.73 sqM) Est GFR (CKD-EPI)NonAf (>60 ml/min/1.73 sqM) Glucose (74-99) mg/dL Calcium (8.4-10.2) mg/dL Total Bilirubin (0.2-1.3) mg/dL Conjugated Bilirubin (0.0-0.3) mg/dL Unconjugated Bilirubin (0.0-1.1) mg/dL Delta Bilirubin (0.0-0.2) mg/dL AST (17-59) U/L ALT (4-49) U/L Alkaline Phosphatase (38-126) U/L Ammonia 98 H (<30) umol/L Troponin I (0.000-0.034) ng/mL Total Protein (6.3-8.2) g/dL Albumin (3.5-5.0) g/dL Urine Color Urine Appearance (Clear) Urine pH (5.0-8.0) Ur Specific [place] (1.001-1.035) Urine Protein (Negative) Urine Glucose (UA) (Negative) Urine Ketones (Negative) Urine Blood (Negative) Urine Nitrite (Negative) Urine Bilirubin (Negative) Urine Urobilinogen (<2.0) mg/dL Ur Leukocyte Esterase (Negative) Urine RBC (0-5) /hpf Urine WBC (0-5) /hpf Ur Squamous Epith Cells (0-4) /hpf Hyaline Casts (0-2) /lpf Urine Mucus (None) /hpf Salicylates mg/dL Urine Opiates Screen (NotDetected) Ur Oxycodone Screen (NotDetected) Urine Methadone Screen (NotDetected) Ur Propoxyphene Screen (NotDetected) Acetaminophen ug/mL Ur Barbiturates Screen (NotDetected) U Tricyclic Antidepress (NotDetected) Ur Phencyclidine Scrn (NotDetected) Ur Amphetamines Screen (NotDetected) U Methamphetamines Scrn (NotDetected) U Benzodiazepines Scrn (NotDetected) Urine Cocaine Screen (NotDetected) U Marijuana (THC) Screen (NotDetected) Serum Alcohol mg/dL - EKG Data EKG Comments: EKG done at 1704 and ED attending physician reveals sinus rhythm with a rate of 90, normal axis, normal intervals, no acute ST or T-wave changes. Normal QRS morphology. Disposition Clinical Impression: Alcohol withdrawal delirium, acute, hyperactive, Hypokalemia, Hyperammonemia, Polysubstance abuse, Abrasion Narrative: Bilateral leg abrasions Disposition: ADMITTED IP TO THIS [facility] Condition: Fair Is patient prescribed a controlled substance at d/c from ED?: No Referrals: [facility] [Primary Care Provider] - 1-2 days Time of Disposition: 17:59 Decision to Admit Reason: Admit from EC Decision Time: 17:59
[2021-12-26 17:40] LABS: Basophils % (A) 1 %; Eosinophils % (A) 1 %; HCT 40.4 % (39.0-53.0); HGB 13.6 gm/dL (13.0-17.5); Lymphocytes # (A) 0.4 k/uL (1.0-4.8); Lymphocytes % (A) 10 %; MCH 31.3 pg (25.0-35.0); MCHC 33.8 g/dL (31.0-37.0); MCV 92.8 fL (80.0-100.0); Mean Platelet Volume 9.8; Monocytes # (A) 0.3 k/uL (0-1.0); Monocytes % (A) 8 %; Neutrophils % (A) 78 %; RBC 4.36 m/uL (4.30-5.90); RDW 14.4 % (11.5-15.5); WBC 3.9 k/uL (3.8-10.6)
[2021-12-26 17:41] LABS: INR 1.3 (<1.2); Prothrombin Time 13.5 sec (9.0-12.0)
[2021-12-26 17:42] LABS: Appearance,Urine Clear (Clear); Bilirubin,Urine 1+ (Negative); Blood,Urine Negative (Negative); Color,Urine Yellow; Glucose,Urine (UA) Negative (Negative); Hyaline Casts,Urine 12 /lpf (0-2); Ketones,Urine 2+ (Negative); Leukocyte Esterase,Urine Negative (Negative); Mucus,Urine Rare /hpf; Nitrite,Urine Negative (Negative); Protein,Urine 1+ (Negative); RBC,Urine 4 /hpf (0-5); Specific Gravity,Urine 1.026 (1.001-1.035); Squamous Epithelial Cell,Urine <1 /hpf (0-4); WBC,Urine 6 /hpf (0-5)
[2021-12-26 17:54] LABS: ALT 75 U/L (4-49); AST 112 U/L (17-59); Acetaminophen <10.0 ug/mL; African American GFR (CKD) >90 (>60 ml/min/1.73 sqM); Albumin 4.2 g/dL (3.5-5.0); Alcohol <10 mg/dL; Alkaline Phosphatase 149 U/L (38-126); Anion Gap 16 mmol/L; Bilirubin, Delta 0.7 mg/dL (0.0-0.2); Bilirubin,Unconjugated 1.8 mg/dL (0.0-1.1); Blood Urea Nitrogen 17 mg/dL (9-20); Calcium 8.5 mg/dL (8.4-10.2); Carbon Dioxide 18 mmol/L (22-30); Chloride 102 mmol/L (98-107); Glucose 84 mg/dL (74-99); Non-African American GFR(CKD) 88 (>60 ml/min/1.73 sqM); Salicylate <1.0 mg/dL; Sodium 136 mmol/L (137-145); Total Bilirubin 2.5 mg/dL (0.2-1.3); Total Protein 6.9 g/dL (6.3-8.2)
[2021-12-26] MEDS ORDERED: POTASSIUM CHLORIDE ER 20 MEQ TAB.ER PO STA (17:57)
[2021-12-26] MEDS ORDERED: MAGNESIUM SULFATE-D5W PMX 1 GM in DEXTROSE/WATER 1 100ML.BAG IVPB ONE (17:57)
[2021-12-26] MEDS ORDERED: LACTULOSE 20 GM/30 ML CUP PO ONE (17:58)
[2021-12-26 17:59] LABS: Amphetamine Screen,Urine Detected (NotDetected); Barbiturate Screen,Urine Not Detected (NotDetected); Benzodiazepines Screen,Urine Not Detected (NotDetected); Cocaine Screen,Urine Not Detected (NotDetected); Methadone Screen, Urine Not Detected (NotDetected); Opiate Screen,Urine Not Detected (NotDetected); Oxycodone Screen, Urine Not Detected (NotDetected); Phencyclidine Screen,Urine Not Detected (NotDetected); Tricyclic Antidepressant,Urine Not Detected (NotDetected); Urn Cannabinoid Scrn Detected (NotDetected)
[2021-12-26] MEDS ORDERED: BACITRACIN OINT 1 EACH PACKET TOPICAL ONE (18:32)
[2021-12-26] MEDS ORDERED: KETOROLAC 15 MG/ML 1 ML VIAL IVP STA (18:32)
[2021-12-26 18:59] LABS: Platelet Count 57 k/uL (150-450)
[2021-12-26] MEDS ORDERED: MULTIVITAMINS, THERA 1 EACH TAB PO SCH (21:00)
[2021-12-26] MEDS ORDERED: KETOROLAC 15 MG/ML 1 ML VIAL IVP PRN (21:03)
[2021-12-26] MEDS ORDERED: MELATONIN 3 MG TABLET PO PRN (21:03)
[2021-12-26] MEDS ORDERED: ONDANSETRON 4 MG/2 ML VIAL IVP PRN (21:03)
[2021-12-26] MEDS ORDERED: NALOXONE 0.4 MG/ML 1 ML VIAL IV PRN (21:03)
[2021-12-26] MEDS ORDERED: chlordiazePOXIDE 25 MG CAP PO STA (21:17)
[2021-12-26] MEDS: 0.9% NACL WITH KCL 20 MEQ/L 1,000 ML with THIAMINE 100 MG, FOLIC ACID 1 MG IV SCH ×3 (21:31)
--- NOTE | 2021-12-27 01:00 | P.HPIM ---
History of Present Illness H&P Date: 12/26/21 Chief Complaint: hallucinations 46 year old male with polysubstance abuse, liver failure , DM patient comes in for evaluation due to hallucinations, he admits to alcohol abu se, his last drink was 2 days ago, at one point he felt trapped at the appartment complex, feeling people watching him and attempting to harm him, he eventually found a way to leave and went to [employer], where police found him and brought him or evaluation . he was initially very agitated and ancious with tremors. denies any suicidal or homicidal ideation, but admits to auditory and visual hallucinations. denies any fever chills, cough, respiratory smptoms , denies any changes in bowel or urinary habits. denies any chest pain abd pain, or headache. denies any focal neuro deficits . workup in the ED showed hypokalemia and hyponatremia . elevated liver enzymes urine drug screen positive for cannabis amphetamine and meth Review of Systems Pertinent positives as noted in HPI. All other systems were reviewed and are negative Past Medical History Additional Past Medical History / Comment(s): liver failure, ETOH History of Any Multi-Drug Resistant Organisms: MRSA Date of last positivie culture/infection: 08/21/16 MDRO Source:: Abdomen Past Surgical History: Tonsillectomy Past Psychological History: No Psychological Hx Reported Smoking Status: Current every day smoker Past Alcohol Use History: Daily, Heavy Additional Past Alcohol Use History / Comment(s): Patient states he drinks 1 pint to a 5th a day. Past Drug Use History: Cocaine, Marijuana, Methamphetamine - Past Family History Family Family Medical History: No Reported History Medications and Allergies Home Medications Medication Instructions Recorded Confirmed Type No Known Home Medications 12/26/21 12/26/21 History Allergies Allergy/AdvReac Type Severity Reaction Status Date / Time No Known Allergies Allergy Verified 12/26/21 18:14 Physical Exam Vitals: Vital Signs Temp Pulse Pulse Resp BP BP Pulse Ox 12/26/21 21:36 70 18 115/75 97 12/26/21 21:10 98.7 F 66 17 130/76 99 12/26/21 18:58 97 18 127/75 97 12/26/21 16:49 98.3 F 104 H 28 H 129/95 98 Intake and Output 12/26/21 12/26/21 12/27/21 14:59 22:59 06:59 Other: Weight 63.503 kg Constitutional: Anxious, cooperative, hand tremors no asterixis Eyes: Anicteric sclerae, moist conjunctiva, Pupils equal round reactive to light ENMT: NC/AT Oropharynx clear, no erythema, or exudates Neck: Supple, no masses, or JVD No carotid bruits No thyromegaly Lungs: Clear to auscultation Clear to percussion Normal respiratory effort, no accessory muscle use Cardiovascular: Heart regular in rate and rhythm, No murmurs, gallops, or rubs No peripheral edema Abdominal: Soft Nontender, no guarding, rebound or rigidity Abdomen moving with respiration Normoactive bowel sounds No hepatomegaly, No splenomegaly No palpable mass No abdominal wall hernia noted Skin: Normal temperature, tone, texture, turgor No induration No subcutaneous nodules No rash, lesions No ulcers Extremities: No digital cyanosis No clubbing Pedal pulses intact and symmetrical Radial pulses intact and symmetrical No calf tenderness Psychiatric: Alert and oriented to person, place and time Appropriate affect fair judgement Neuro Muscles Strength 5/5 in all 4 extremities Sensation to light touch grossly present throughout Cranial nerves II-XII grossly intact No focal sensory deficits Lymphatics: no palpable cervical or supraclavicular , or inguinal lymph nodes Results CBC & Chem 7: 12/26/21 17:19 12/26/21 17:19 Labs: Abnormal Lab Results - Last 24 Hours (Table) 12/26/21 12/26/21 12/26/21 Range/Units 17:19 17:19 17:19 Plt Count 57 L (150-450) k/uL Lymphocytes # 0.4 L (1.0-4.8) k/uL PT 13.5 H (9.0-12.0) sec INR 1.3 H (<1.2) Sodium (137-145) mmol/L Potassium (3.5-5.1) mmol/L Carbon Dioxide (22-30) mmol/L Total Bilirubin (0.2-1.3) mg/dL Unconjugated Bilirubin (0.0-1.1) mg/dL Delta Bilirubin (0.0-0.2) mg/dL AST (17-59) U/L ALT (4-49) U/L Alkaline Phosphatase (38-126) U/L Ammonia (<30) umol/L Urine Protein (Negative) Urine Ketones (Negative) Urine Bilirubin (Negative) Urine WBC (0-5) /hpf Hyaline Casts (0-2) /lpf Urine Mucus (None) /hpf Ur Amphetamines Screen Detected H (NotDetected) U Methamphetamines Scrn Detected H (NotDetected) U Marijuana (THC) Screen Detected H (NotDetected) 12/26/21 12/26/21 12/26/21 Range/Units 17:19 17:19 17:19 Plt Count (150-450) k/uL Lymphocytes # (1.0-4.8) k/uL PT (9.0-12.0) sec INR (<1.2) Sodium 136 L (137-145) mmol/L Potassium 3.0 L (3.5-5.1) mmol/L Carbon Dioxide 18 L (22-30) mmol/L Total Bilirubin 2.5 H (0.2-1.3) mg/dL Unconjugated Bilirubin 1.8 H (0.0-1.1) mg/dL Delta Bilirubin 0.7 H (0.0-0.2) mg/dL AST 112 H (17-59) U/L ALT 75 H (4-49) U/L Alkaline Phosphatase 149 H (38-126) U/L Ammonia 98 H (<30) umol/L Urine Protein 1+ H (Negative) Urine Ketones 2+ H (Negative) Urine Bilirubin 1+ H (Negative) Urine WBC 6 H (0-5) /hpf Hyaline Casts 12 H (0-2) /lpf Urine Mucus Rare H (None) /hpf Ur Amphetamines Screen (NotDetected) U Methamphetamines Scrn (NotDetected) U Marijuana (THC) Screen (NotDetected) Thrombosis Risk Factor Assmnt - Choose All That Apply Each Factor Represents 1 point: Age 41-60 years Thrombosis Risk Factor Assessment Total Risk Factor Score: 1 Thrombosis Risk Factor Assessment Level: Low Risk Assessment and Plan Assessment: Alcohol abuse with alcohol withdrawal syndrome Presented with 3 and visual hallucinations Monitor for DTs Due to unavailability of Ativan patient will be started on Librium around-the- clock Thiamine IV fluid hydration Fall precautions Seizure precautions Hypokalemia hyponatremia IV fluid hydration on the ceiling Replace potassium follow-up levels Advanced liver cirrhosis with liver failure Hyperammonemia Initiate lactulose Monitor liver enzymes Denies any GI bleeding Denies history of hepatitis Thrombocytopenia secondary to alcohol abuse Monitor for any evidence of bleeding Polysubstance abuse Counseled to quit drug of abuse DVT prophylaxis mechanical due to thrombocytopenia Full code
[2021-12-27] MEDS: LACTULOSE 20 GM/30 ML CUP PO SCH ×3 (04:49→16:12)
[2021-12-27] MEDS: chlordiazePOXIDE 25 MG CAP PO SCH ×2 (08:07→16:12)
[2021-12-27 08:13] LABS: Basophils % (A) 0 %; Eosinophils # (A) 0.1 k/uL (0-0.7); Eosinophils % (A) 5 %; HCT 39.5 % (39.0-53.0); HGB 13.1 gm/dL (13.0-17.5); Lymphocytes # (A) 0.6 k/uL (1.0-4.8); Lymphocytes % (A) 23 %; MCH 31.5 pg (25.0-35.0); MCHC 33.2 g/dL (31.0-37.0); MCV 94.7 fL (80.0-100.0); Mean Platelet Volume 10.5; Monocytes # (A) 0.2 k/uL (0-1.0); Monocytes % (A) 8 %; Neutrophils # (A) 1.7 k/uL (1.3-7.7); Neutrophils % (A) 62 %; RBC 4.17 m/uL (4.30-5.90); RDW 14.5 % (11.5-15.5); WBC 2.7 k/uL (3.8-10.6)
[2021-12-27 08:27] LABS: Platelet Count 47 k/uL (150-450)
[2021-12-27 08:39] LABS: ALT 71 U/L (4-49); AST 95 U/L (17-59); African American GFR (CKD) >90 (>60 ml/min/1.73 sqM); Albumin 3.5 g/dL (3.5-5.0); Alkaline Phosphatase 170 U/L (38-126); Anion Gap 6 mmol/L; Blood Urea Nitrogen 18 mg/dL (9-20); Calcium 8.3 mg/dL (8.4-10.2); Carbon Dioxide 28 mmol/L (22-30); Chloride 106 mmol/L (98-107); Glucose 95 mg/dL (74-99); Magnesium 2.2 mg/dL (1.6-2.3); Non-African American GFR(CKD) >90 (>60 ml/min/1.73 sqM); Phosphorus 2.5 mg/dL (2.5-4.5); Sodium 140 mmol/L (137-145); Total Bilirubin 1.3 mg/dL (0.2-1.3)
[2021-12-27 09:49] VITALS: RESP 16
[2021-12-27 13:52] VITALS: BP 123/63; PULSE 67; TEMP 98.1
--- NOTE | 2021-12-27 13:54 | P.PN ---
Subjective Progress Note Date: 12/27/21 Hospital course: 46 years old patient who prestented having delusions, auditory and visual hallucinations, and tremors. Patient uncertain if he used methamphetamine or cocaine yesterday. Patient states he usually drinks quite a bit of alcohol. He states he usually drinks 09/23/2023 ounce beers per day. States his last drink was about 48 hours ago prior to admission. Patient denies any seizure activity. Patient states that he was not feeling safe at home and thought somebody may be after him. Patient ended up running from his apartment complex. Patient went to a local [employer] and was seen by local police clerk. He was advised that he come to the ER for evaluation. Subjective Patient seen and evaluated at bedside, today patient does not report any worsening of his breathing or report any new significant chest pain. Patient remains in no acute distress. Patient questions and concerns addressed at bedside, proper counseling done. Plan discussed with nursing staff. Physical examination General: non toxic, no acute distress, alert oriented to time place and person Head: atraumatic, normocephalic, symmetric Eyes: no lid lesion], anicteric sclera Mouth: no lip lesion, mucus membranes moist Cardiovascular: S1S2 reg rate and rhythm, no murmur, no gallop Lungs: Bilateral equal air entry, no wheezing no rhonchi no crackles. Abdominal: soft, nontender to palpation, no guarding, no appreciable organomegaly Ext: no gross muscle atrophy, no edema extremities warm to suppose a positive Neuro: Alert oriented to time place and person, exam grossly nonfocal Psych: Mood and affect appropriate, patient not so certain Skin exam: No rashes no jaundice. Assessment and plan Alcohol abuse and alcohol withdrawal Continue CIWA protocol Continue Librium Monitor for withdrawal symptoms Continue IV hydration fall precautions seizure precaution Hyperammonemia Continue lactulose No previous history of cirrhosis We'll get liver ultrasound Patient will need close follow-up with gastroneurology as an outpatient Electrolyte abnormality Hypokalemia and hyponatremia likely due to dehydration in the setting of above Resolved, continue to monitor plaque-like, replace as needed Thrombocytopenia likely due to alcohol abuse and cirrhosis Continue to monitor Polysubstance abuse Counseling for drug abuse DVT prophylaxis: None due to thrombocyte CODE STATUS: Full code Discharge plan: Next 2-3 days once patient clinically stable Objective - Vital Signs Vital signs: Vital Signs Temp 98.1 F 12/27/21 13:45 Pulse 67 12/27/21 13:45 Resp 16 12/27/21 13:45 BP 123/63 12/27/21 13:45 Pulse Ox 99 12/27/21 13:45 FiO2 Intake & Output 12/26/21 12/27/21 12/27/21 18:59 06:59 18:59 Intake Total 300 Balance 300 Weight 63.503 kg 63.503 kg Intake: Intake, IV Titration 300 Amount 0.9% NaCl with KCl 20 Meq 300 /l 1,000 ml @ 50 mls/hr IV .Q20H2M ELIUD with Thiamine 100 mg with Folic Acid 1 mg Rx#: [id number] Other: Voiding Method Toilet # Bowel Movements 1 - Labs CBC & Chem 7: 12/27/21 06:46 12/27/21 06:46 Labs: Abnormal Lab Results - Last 24 Hours (Table) 12/26/21 12/26/21 12/26/21 Range/Units 17:19 17:19 17:19 WBC (3.8-10.6) k/uL RBC (4.30-5.90) m/uL Plt Count 57 L (150-450) k/uL Lymphocytes # 0.4 L (1.0-4.8) k/uL PT 13.5 H (9.0-12.0) sec INR 1.3 H (<1.2) Sodium (137-145) mmol/L Potassium (3.5-5.1) mmol/L Carbon Dioxide (22-30) mmol/L Calcium (8.4-10.2) mg/dL Total Bilirubin (0.2-1.3) mg/dL Unconjugated Bilirubin (0.0-1.1) mg/dL Delta Bilirubin (0.0-0.2) mg/dL AST (17-59) U/L ALT (4-49) U/L Alkaline Phosphatase (38-126) U/L Ammonia (<30) umol/L Total Protein (6.3-8.2) g/dL Urine Protein (Negative) Urine Ketones (Negative) Urine Bilirubin (Negative) Urine WBC (0-5) /hpf Hyaline Casts (0-2) /lpf Urine Mucus (None) /hpf Ur Amphetamines Screen Detected H (NotDetected) U Methamphetamines Scrn Detected H (NotDetected) U Marijuana (THC) Screen Detected H (NotDetected) 12/26/21 12/26/21 12/26/21 Range/Units 17:19 17:19 17:19 WBC (3.8-10.6) k/uL RBC (4.30-5.90) m/uL Plt Count (150-450) k/uL Lymphocytes # (1.0-4.8) k/uL PT (9.0-12.0) sec INR (<1.2) Sodium 136 L (137-145) mmol/L Potassium 3.0 L (3.5-5.1) mmol/L Carbon Dioxide 18 L (22-30) mmol/L Calcium (8.4-10.2) mg/dL Total Bilirubin 2.5 H (0.2-1.3) mg/dL Unconjugated Bilirubin 1.8 H (0.0-1.1) mg/dL Delta Bilirubin 0.7 H (0.0-0.2) mg/dL AST 112 H (17-59) U/L ALT 75 H (4-49) U/L Alkaline Phosphatase 149 H (38-126) U/L Ammonia 98 H (<30) umol/L Total Protein (6.3-8.2) g/dL Urine Protein 1+ H (Negative) Urine Ketones 2+ H (Negative) Urine Bilirubin 1+ H (Negative) Urine WBC 6 H (0-5) /hpf Hyaline Casts 12 H (0-2) /lpf Urine Mucus Rare H (None) /hpf Ur Amphetamines Screen (NotDetected) U Methamphetamines Scrn (NotDetected) U Marijuana (THC) Screen (NotDetected) 12/27/21 12/27/21 12/27/21 Range/Units 06:46 06:46 08:30 WBC 2.7 L (3.8-10.6) k/uL RBC 4.17 L (4.30-5.90) m/uL Plt Count 47 L (150-450) k/uL Lymphocytes # 0.6 L (1.0-4.8) k/uL PT (9.0-12.0) sec INR (<1.2) Sodium (137-145) mmol/L Potassium (3.5-5.1) mmol/L Carbon Dioxide (22-30) mmol/L Calcium 8.3 L (8.4-10.2) mg/dL Total Bilirubin (0.2-1.3) mg/dL Unconjugated Bilirubin (0.0-1.1) mg/dL Delta Bilirubin (0.0-0.2) mg/dL AST 95 H (17-59) U/L ALT 71 H (4-49) U/L Alkaline Phosphatase 170 H (38-126) U/L Ammonia 50 H (<30) umol/L Total Protein 6.0 L (6.3-8.2) g/dL Urine Protein (Negative) Urine Ketones (Negative) Urine Bilirubin (Negative) Urine WBC (0-5) /hpf Hyaline Casts (0-2) /lpf Urine Mucus (None) /hpf Ur Amphetamines Screen (NotDetected) U Methamphetamines Scrn (NotDetected) U Marijuana (THC) Screen (NotDetected)
[2021-12-27] MEDS: 0.9% NACL WITH KCL 20 MEQ/L 1,000 ML with THIAMINE 100 MG, FOLIC ACID 1 MG IV SCH ×3 (18:31)
--- NOTE | 2021-12-27 18:45 | P.DS ---
Providers Date of admission: 12/26/21 18:03 Expected date of discharge: 12/27/21 Attending physician: Troy Patricio MD Primary care physician: [facility] Hospital Course: Hospital course: 46 years old patient who prestented having delusions, auditory and visual hallucinations, and tremors. Patient uncertain if he used methamphetamine or cocaine yesterday. Patient states he usually drinks quite a bit of alcohol. He states he usually drinks 09/23/2023 ounce beers per day. States his last drink was about 48 hours ago prior to admission. Patient denies any seizure activity. Patient states that he was not feeling safe at home and thought somebody may be after him. Patient ended up running from his apartment complex. Patient went to a local [employer] store and was seen by local police matron. He was advised that he come to the ER for evaluation. Physical examination General: non toxic, no acute distress, alert oriented to time place and person Head: atraumatic, normocephalic, symmetric Eyes: no lid lesion], anicteric sclera Mouth: no lip lesion, mucus membranes moist Cardiovascular: S1S2 reg rate and rhythm, no murmur, no gallop Lungs: Bilateral equal air entry, no wheezing no rhonchi no crackles. Abdominal: soft, nontender to palpation, no guarding, no appreciable organomegaly Ext: no gross muscle atrophy, no edema extremities warm to suppose a positive Neuro: Alert oriented to time place and person, exam grossly nonfocal Assessment and plan Alcohol abuse and alcohol withdrawal Patient treated with CIWA protocol and Librium Still having withdrawal symptoms Patient is leaving against medical advice Hyperammonemia Was started on lactulose No previous history of cirrhosis Ordered liver ultrasound Patient will need close follow-up with gastroneurology as an outpatient Patient is leaving against medical advice Electrolyte abnormality Hypokalemia and hyponatremia likely due to dehydration in the setting of above Thrombocytopenia likely due to alcohol abuse and cirrhosis Will need OP follow up Polysubstance abuse Counseling for drug abuse I was Paged by Nursing staff that Patient left against medical advice Patient Condition at Discharge: Fair Plan - Discharge Summary New Discharge Prescriptions: No Action No Known Home Medications Discharge Medication List No Known Home Medications 12/26/21 [History] Follow up Appointment(s)/Referral(s): [facility] [Primary Care Provider] - 1-2 days
== END 2021-12-27 19:10 | disposition left against medical advice (07) | DRG 894 ==
LOC: EC 16:47 → 4SSUR 18:03
PROVIDERS: ADMIT Internal Medicine; ATTEND Internal Medicine
PROC: HZ2ZZZZ Detoxification Services for Substance Abuse Treatment (ICD-10-PCS; principal; 2021-12-26)
DX: F10.231 Alcohol dependence with withdrawal delirium (principal); E87.1 Hypo-osmolality and hyponatremia; K70.40 Alcoholic hepatic failure without coma; Z53.29 Procedure and treatment not carried out because of patient's decision for other reasons; K70.30 Alcoholic cirrhosis of liver without ascites; D69.59 Other secondary thrombocytopenia; F12.10 Cannabis abuse, uncomplicated; S80.812A Abrasion, left lower leg, initial encounter; S80.811A Abrasion, right lower leg, initial encounter; F14.10 Cocaine abuse, uncomplicated; F15.10 Other stimulant abuse, uncomplicated; E11.9 Type 2 diabetes mellitus without complications; E86.0 Dehydration; E87.6 Hypokalemia; F17.210 Nicotine dependence, cigarettes, uncomplicated; F22 Delusional disorders; F41.9 Anxiety disorder, unspecified; Z71.51 Drug abuse counseling and surveillance of drug abuser; Z86.14 Personal history of Methicillin resistant Staphylococcus aureus infection
CPT/HCPCS: 36415; 80048; 80053; 80076; 80143; 80179; 80306; 80320; 81001; 82140; 83735; 84100; 84484; 85025; 85610; 93005; 96365; 96366; 96375; 96376; 99285

== ENCOUNTER 2021-12-30 12:05 | Emergency (ER) | payer OTHER ==
[2021-12-30 12:58] VITALS: TEMP 98.3
[2021-12-30 15:46] LABS: Basophils % (A) 1 %; Eosinophils # (A) 0.1 k/uL (0-0.7); Eosinophils % (A) 5 %; HCT 38.7 % (39.0-53.0); HGB 12.9 gm/dL (13.0-17.5); Lymphocytes # (A) 0.6 k/uL (1.0-4.8); Lymphocytes % (A) 25 %; MCH 31.1 pg (25.0-35.0); MCHC 33.2 g/dL (31.0-37.0); MCV 93.6 fL (80.0-100.0); Mean Platelet Volume 9.6; Monocytes # (A) 0.2 k/uL (0-1.0); Monocytes % (A) 8 %; Neutrophils # (A) 1.3 k/uL (1.3-7.7); Neutrophils % (A) 58 %; RBC 4.14 m/uL (4.30-5.90); WBC 2.3 k/uL (3.8-10.6)
[2021-12-30 15:56] LABS: ALT 220 U/L (4-49); AST 351 U/L (17-59); African American GFR (CKD) >90 (>60 ml/min/1.73 sqM); Albumin 3.7 g/dL (3.5-5.0); Alcohol <10 mg/dL; Alkaline Phosphatase 181 U/L (38-126); Anion Gap 4 mmol/L; Blood Urea Nitrogen 9 mg/dL (9-20); Calcium 8.4 mg/dL (8.4-10.2); Carbon Dioxide 25 mmol/L (22-30); Chloride 109 mmol/L (98-107); Glucose 102 mg/dL (74-99); Non-African American GFR(CKD) >90 (>60 ml/min/1.73 sqM); Potassium 4.7 mmol/L (3.5-5.1); Sodium 138 mmol/L (137-145); Total Bilirubin 1.1 mg/dL (0.2-1.3); Total Protein 6.5 g/dL (6.3-8.2)
--- NOTE | 2021-12-30 16:19 | ED ---
Recheck HPI - General Chief Complaint: Recheck/Abnormal Lab/Rx Stated Complaint: sent by [facility] Time Seen by Provider: 12/30/21 15:19 Source: patient, RN notes reviewed Mode of arrival: ambulatory Limitations: no limitations - History of Present Illness Initial Comments: This is a 46-year-old male who presents to the emergency department as requested by [facility]. He was told that he needs to have his liver enzymes and ammonia levels evaluated prior to admission. He has fully gone through the intake process with them otherwise. He was admitted on 12/26 for acute delirium from alcohol withdrawal, elevated ammonia levels, and polysubstance abuse. He did end up signing out AMA the next day after being admitted. Denies any fevers, chills, sore throat, cough, dyspnea, chest pain, palpitations, abdominal pain, nausea, vomiting, diarrhea, back pain, or headaches. MD Complaint: other (LFT and ammonia levels needed) - Related Data Previous Rx's Medication Instructions Recorded Ondansetron Odt [Zofran Odt] 4 mg PO Q8HR PRN #15 tab 12/30/21 Ondansetron Odt [Zofran Odt] 4 mg PO Q8HR PRN #15 tab 12/30/21 Allergies Allergy/AdvReac Type Severity Reaction Status Date / Time No Known Allergies Allergy Verified 12/30/21 12:58 Review of Systems ROS Statement: Those systems with pertinent positive or pertinent negative responses have been documented in the HPI. ROS Other: All systems not noted in ROS Statement are negative. Past Medical History Additional Past Medical History / Comment(s): liver failure, ETOH History of Any Multi-Drug Resistant Organisms: MRSA Date of last positivie culture/infection: 08/21/16 MDRO Source:: Abdomen Past Surgical History: Tonsillectomy Past Psychological History: No Psychological Hx Reported Smoking Status: Current every day smoker Past Alcohol Use History: Daily, Heavy Past Drug Use History: Cocaine, Marijuana, Methamphetamine - Past Family History Family Family Medical History: No Reported History General Exam Limitations: no limitations General appearance: alert, in no apparent distress Head exam: Present: atraumatic, normocephalic, normal inspection Respiratory exam: Present: normal lung sounds bilaterally. Absent: respiratory distress, wheezes, rales, rhonchi, stridor Cardiovascular Exam: Present: regular rate, normal rhythm, normal heart sounds. Absent: systolic murmur, diastolic murmur, rubs, gallop, clicks GI/Abdominal exam: Present: soft, normal bowel sounds. Absent: distended, tenderness, guarding, rebound, rigid Neurological exam: Present: alert, oriented X3, CN II-XII intact Psychiatric exam: Present: normal affect, normal mood Skin exam: Present: warm, dry, intact, normal color. Absent: rash Course Vital Signs 12/30/21 12/30/21 12:55 18:15 Temperature 98.3 F Pulse Rate 83 53 L Respiratory 16 14 Rate Blood Pressure 143/86 126/93 O2 Sat by Pulse 98 100 Oximetry Medical Decision Making - Medical Decision Making This is a 46-year-old male who presents to the emergency department as requested by [facility]. Lab work does reveal elevated liver enzymes and an elevated ammonia level. Ammonia level is improved from prior, however liver enzymes are increased. However, the patient's bilirubin is within normal limits, and this is all most likely related to the patient's alcohol use. Ultrasound of the liver was obtained for baseline evaluation. This revealed cholelithiasis, hepatic cirrhosis, and common bile duct dilation. The patient is asymptomatic with regards to the common bile duct dilation, and there will be no further investigation at this time. The patient was made aware of this finding and told that if he has right upper quadrant pain, nausea, vomiting, or fevers, he should return immediately for further evaluation. Information for Dr. Veloz, general surgery, listed on the discharge forms as well for follow-up regarding these findings. Prescription for Zofran was provided in the event he has any episodes of nausea. Acute hepatitis panel was also added onto the patient's labwork. Based on the patient's current lab values, he is stable to return to [facility]. Return precautions reviewed in depth, the patient is instructed to return to the emergency department with any new, worsening, or concerning symptoms. Patient verbalized understanding. This case was discussed in detail with the attending ED physician. Presentation, findings, and treatment plan discussed in detail as well. - Lab Data Result diagrams: 12/30/21 15:34 12/30/21 15:34 Lab Results 12/30/21 12/30/21 12/30/21 Range/Units 15:34 15:34 15:34 WBC 2.3 L (3.8-10.6) k/uL RBC 4.14 L (4.30-5.90) m/uL Hgb 12.9 L (13.0-17.5) gm/dL Hct 38.7 L (39.0-53.0) % MCV 93.6 (80.0-100.0) fL MCH 31.1 (25.0-35.0) pg MCHC 33.2 (31.0-37.0) g/dL RDW 14.0 (11.5-15.5) % Plt Count 61 L (150-450) k/uL MPV 9.6 Neutrophils % 58 % Lymphocytes % 25 % Monocytes % 8 % Eosinophils % 5 % Basophils % 1 % Neutrophils # 1.3 (1.3-7.7) k/uL Lymphocytes # 0.6 L (1.0-4.8) k/uL Monocytes # 0.2 (0-1.0) k/uL Eosinophils # 0.1 (0-0.7) k/uL Basophils # 0.0 (0-0.2) k/uL RBC Morphology Normal Sodium 138 (137-145) mmol/L Potassium 4.7 (3.5-5.1) mmol/L Chloride 109 H (98-107) mmol/L Carbon Dioxide 25 (22-30) mmol/L Anion Gap 4 mmol/L BUN 9 (9-20) mg/dL Creatinine 0.67 (0.66-1.25) mg/dL Est GFR (CKD-EPI)AfAm >90 (>60 ml/min/1.73 sqM) Est GFR (CKD-EPI)NonAf >90 (>60 ml/min/1.73 sqM) Glucose 102 H (74-99) mg/dL Calcium 8.4 (8.4-10.2) mg/dL Total Bilirubin 1.1 (0.2-1.3) mg/dL AST 351 H (17-59) U/L ALT 220 H (4-49) U/L Alkaline Phosphatase 181 H (38-126) U/L Ammonia (<30) umol/L Total Protein 6.5 (6.3-8.2) g/dL Albumin 3.7 (3.5-5.0) g/dL Urine Color Yellow Urine Appearance Cloudy (Clear) Urine pH 7.5 (5.0-8.0) Ur Specific [place] 1.013 (1.001-1.035) Urine Protein Negative (Negative) Urine Glucose (UA) Negative (Negative) Urine Ketones Negative (Negative) Urine Blood Negative (Negative) Urine Nitrite Negative (Negative) Urine Bilirubin Negative (Negative) Urine Urobilinogen 8.0 (<2.0) mg/dL Ur Leukocyte Esterase Negative (Negative) Urine RBC 1 (0-5) /hpf Urine WBC 1 (0-5) /hpf Calcium Oxalate Crystal Occasional H (None) /hpf Urine Mucus Rare H (None) /hpf Serum Alcohol <10 mg/dL 12/30/21 Range/Units 15:34 WBC (3.8-10.6) k/uL RBC (4.30-5.90) m/uL Hgb (13.0-17.5) gm/dL Hct (39.0-53.0) % MCV (80.0-100.0) fL MCH (25.0-35.0) pg MCHC (31.0-37.0) g/dL RDW (11.5-15.5) % Plt Count (150-450) k/uL MPV Neutrophils % % Lymphocytes % % Monocytes % % Eosinophils % % Basophils % % Neutrophils # (1.3-7.7) k/uL Lymphocytes # (1.0-4.8) k/uL Monocytes # (0-1.0) k/uL Eosinophils # (0-0.7) k/uL Basophils # (0-0.2) k/uL RBC Morphology Sodium (137-145) mmol/L Potassium (3.5-5.1) mmol/L Chloride (98-107) mmol/L Carbon Dioxide (22-30) mmol/L Anion Gap mmol/L BUN (9-20) mg/dL Creatinine (0.66-1.25) mg/dL Est GFR (CKD-EPI)AfAm (>60 ml/min/1.73 sqM) Est GFR (CKD-EPI)NonAf (>60 ml/min/1.73 sqM) Glucose (74-99) mg/dL Calcium (8.4-10.2) mg/dL Total Bilirubin (0.2-1.3) mg/dL AST (17-59) U/L ALT (4-49) U/L Alkaline Phosphatase (38-126) U/L Ammonia 36 H (<30) umol/L Total Protein (6.3-8.2) g/dL Albumin (3.5-5.0) g/dL Urine Color Urine Appearance (Clear) Urine pH (5.0-8.0) Ur Specific [place] (1.001-1.035) Urine Protein (Negative) Urine Glucose (UA) (Negative) Urine Ketones (Negative) Urine Blood (Negative) Urine Nitrite (Negative) Urine Bilirubin (Negative) Urine Urobilinogen (<2.0) mg/dL Ur Leukocyte Esterase (Negative) Urine RBC (0-5) /hpf Urine WBC (0-5) /hpf Calcium Oxalate Crystal (None) /hpf Urine Mucus (None) /hpf Serum Alcohol mg/dL - Radiology Data Radiology results: report reviewed, image reviewed Disposition Clinical Impression: Polysubstance use disorder, Alcoholic hepatitis Disposition: HOME SELF-CARE Instructions (If sedation given, give patient instructions): Abuse of Alcohol (ED) Additional Instructions: Return to the emergency department with any new, worsening, or concerning symptoms. Continue taking the lactulose for the elevated ammonia. Follow through with [facility] for rehabilitation. Take the Zofran if needed for nausea and vomiting. Contact Dr. Veloz, general surgery, to further discuss the abnormal gallbladder findings. Prescriptions: Ondansetron Odt [Zofran Odt] 4 mg PO Q8HR PRN #15 tab PRN Reason: Nausea And Vomiting Ondansetron Odt [Zofran Odt] 4 mg PO Q8HR PRN #15 tab PRN Reason: Nausea And Vomiting Is patient prescribed a controlled substance at d/c from ED?: No [facility] [Primary Care Provider] - 1-2 days Devan Veloz MD [Medical Doctor] - 1-2 days
[2021-12-30 16:24] LABS: Appearance,Urine Cloudy (Clear); Bilirubin,Urine Negative (Negative); Blood,Urine Negative (Negative); Calcium Oxalate Crystals,Urine Occasional /hpf; Color,Urine Yellow; Glucose,Urine (UA) Negative (Negative); Ketones,Urine Negative (Negative); Leukocyte Esterase,Urine Negative (Negative); Mucus,Urine Rare /hpf; Nitrite,Urine Negative (Negative); PH, Urine 7.5 (5.0-8.0); Protein,Urine Negative (Negative); RBC,Urine 1 /hpf (0-5); Specific Gravity,Urine 1.013 (1.001-1.035); WBC,Urine 1 /hpf (0-5)
[2021-12-30 16:48] LABS: Platelet Count 61 k/uL (150-450); RBC Morphology Normal
[2021-12-30 18:16] VITALS: BP 126/93; PULSE 53; RESP 14
[2021-12-30] MEDS ORDERED: KETOROLAC 15 MG/ML 1 ML VIAL IVP STA (18:16)
--- NOTE | 2021-12-30 18:24 | US ---
EXAMINATION TYPE: US abdomen limited DATE OF EXAM: 12/30/2021 COMPARISON: NONE CLINICAL HISTORY: Elevated liver enzymes. Elevated liver enzymes EXAM MEASUREMENTS: Liver Length: 17.3 cm Gallbladder Wall: 0.2 cm CBD: 1.2 cm Right Kidney: 10.9 x 5.7 x 4.5 cm *technical limitations due to overlying bowel content Pancreas: visualized portions appear heterogeneous, tail obscured by overlying bowel content Liver: attenuating, heterogeneous with nodular contour. Gallbladder: hyperechoic area = 0.7cm Evidence for sonographic Stern's sign: no CBD: dilated Right Kidney: no evidence of hydronephrosis IMPRESSION: 1. Hepatic cirrhosis suggested. 2. Cholelithiasis. 3. Dilated common duct up to 12 mm. Clinical correlation and consider MRCP.
[2021-12-30] MEDS ORDERED: ONDANSETRON 4 MG ODT STARTER PACK 2 TAB BTL PO STA (18:48)
[2021-12-30 23:33] LABS: Hepatitis A Antibody IgM Nonreactive (Nonreactive); Hepatitis B Core IgM Nonreactive (Nonreactive); Hepatitis B Surface Antigen Nonreactive (Nonreactive); Hepatitis C IgG Antibody Nonreactive (Nonreactive)
[2021-12-31 05:02] LABS: Urine Alcohol Negative (Negative); Urine Barbiturate Negative (Negative); Urine Cocaine Negative (Negative); Urine Methadone Negative (Negative); Urine Opiates Negative (Negative); Urine Phencyclidine Negative (Negative)
== END 2021-12-30 19:17 | disposition home or self-care (01) ==
LOC: EC 12:05
DX: K70.10 Alcoholic hepatitis without ascites (principal); F19.90 Other psychoactive substance use, unspecified, uncomplicated; F17.200 Nicotine dependence, unspecified, uncomplicated; F12.90 Cannabis use, unspecified, uncomplicated; F15.90 Other stimulant use, unspecified, uncomplicated; F14.90 Cocaine use, unspecified, uncomplicated
CPT/HCPCS: 36415; 84425; 80053; 80074; 82140; 85025; 81001; 80306; 76705; 99284; 96374; G0480; J1885; S0119; 80320

== ENCOUNTER → 2022-03-17 | Outpatient (CLI) | payer OTHER ==
--- NOTE | 2022-03-18 05:55 | MR ---
EXAMINATION TYPE: MR ankle RT wo con DATE OF EXAM: 03/17/2022 COMPARISON: None HISTORY: Right ankle pain and swelling for 2 months Multiplanar multiecho imaging of the right ankle performed with no contrast. On the T1 weighted images there are multiple areas of abnormal decreased signal involving the distal tibia, the superior talus anterior talus anterior and posterior calcaneus, the cuneiform bones and th e navicular. The cuboidal bone is intact. There is also small foci in the distal fibula. These are al l consistent with multifocal avascular necrosis. Medial and lateral flexor tendons are intact. No fracture line seen. Achilles tendon is intact. Plant ar fascia is intact. The collateral ligaments appear intact. There is mild subcutaneous edema around the hindfoot. There i s small ankle joint effusion and subcutaneous talar joint effusion. IMPRESSION: Multiple foci of abnormal decreased signal in the hindfoot as above consistent with multifocal avascu lar necrosis. No fracture line seen. Ankle joint effusion and subtalar joint effusion are suggestive of nonspecific synovitis. No evidence of ligament or tendon tear.
== END ==
LOC: RADMRIMAIN 13:11
PROVIDERS: ATTEND Nurse Practitioner Family
DX: M25.471 Effusion, right ankle (principal); M89.8X7 Other specified disorders of bone, ankle and foot

== ENCOUNTER 2023-02-02 13:06 | Observation (INO) | payer OTHER ==
[2023-02-02] MEDS ORDERED: SODIUM CHLORIDE 0.9% 1,000 ML IV ONE (13:25)
[2023-02-02] MEDS ORDERED: LORazepam 2 MG/ML INJ IV STA (13:25)
--- NOTE | 2023-02-02 13:38 | ED ---
General Adult HPI - General Chief complaint: Recheck/Abnormal Lab/Rx Stated complaint: Alcohol, History Acute Liver Failure Time Seen by Provider: 02/02/23 13:18 Source: patient, RN notes reviewed, old records reviewed Mode of arrival: ambulatory Limitations: no limitations - History of Present Illness Initial comments: 47-year-old male presenting for evaluation of alcohol withdrawal, tremor. Patient has history of alcoholism, states that he had been abstaining from alcohol for some time over the past one week he's been drinking heavily. He states his last drink was around midnight last night. He also has history of liver failure and hyperammonemia. States he's had nausea and vomiting. No abdominal pain. No chest pain. - Related Data Home Medications Medication Instructions Recorded Confirmed No Known Home Medications 02/02/23 02/02/23 Allergies Allergy/AdvReac Type Severity Reaction Status Date / Time No Known Allergies Allergy Verified 02/02/23 14:54 Review of Systems ROS Statement: Those systems with pertinent positive or pertinent negative responses have been documented in the HPI. ROS Other: All systems not noted in ROS Statement are negative. Past Medical History Additional Past Medical History / Comment(s): liver failure, ETOH History of Any Multi-Drug Resistant Organisms: MRSA Date of last positivie culture/infection: 08/21/16 MDRO Source:: Abdomen Past Surgical History: Tonsillectomy Past Psychological History: No Psychological Hx Reported Smoking Status: Current every day smoker Past Alcohol Use History: Daily, Heavy Past Drug Use History: Cocaine, Marijuana, Methamphetamine - Past Family History Family Family Medical History: No Reported History General Exam Limitations: no limitations General appearance: alert, anxious Head exam: Present: atraumatic, normocephalic Eye exam: Present: normal appearance, PERRL ENT exam: Present: mucous membranes dry Neck exam: Present: normal inspection. Absent: tenderness, meningismus Respiratory exam: Present: normal lung sounds bilaterally. Absent: respiratory distress, wheezes Cardiovascular Exam: Present: regular rate, normal rhythm GI/Abdominal exam: Present: soft. Absent: distended, tenderness, guarding Extremities exam: Present: normal inspection, normal capillary refill. Absent: pedal edema Neurological exam: Present: alert, oriented X3, CN II-XII intact. Absent: motor sensory deficit Psychiatric exam: Present: anxious Skin exam: Present: warm, dry, intact. Absent: cyanosis, diaphoretic Course Vital Signs 02/02/23 13:14 Temperature 98.3 F Pulse Rate 69 Respiratory 20 Rate Blood Pressure 169/89 O2 Sat by Pulse 99 Oximetry Medical Decision Making - Medical Decision Making Was pt. sent in by a medical professional or institution (LINDSAY Alegre, FACILITY ENVIRONMENTAL TECHNICIAN, urgent care, hospital, or residential...) When possible be specific @ -No Did you speak to anyone other than the patient for history (EMS, parent, family, police, friend...)? What history was obtained from this source @ -No Did you review nursing and triage notes (agree or disagree)? Why? @ -I reviewed and agree with nursing and triage notes Were old charts reviewed (outside hosp., previous admission, EMS record, old EKG, old radiological studies, urgent care reports/EKG's, residential records)? Report findings @ -No old charts were reviewed Differential Diagnosis (chest pain, altered mental status, abdominal pain women, abdominal pain men, vaginal bleeding, weakness, fever, dyspnea, syncope, headache, dizziness, GI bleed, back pain, seizure, CVA, palpatations, mental health, musculoskeletal)? @ Delirium tremens, alcohol withdrawal, alcohol intoxication EKG interpreted by me (3pts min.). @ -As above X-rays interpreted by me (1pt min.). @ -None done CT interpreted by me (1pt min.). @ -None done U/S interpreted by me (1pt. min.). @ -None done What testing was considered but not performed or refused? (CT, X-rays, U/S, labs)? Why? @ -None What meds were considered but not given or refused? Why? @ -None Did you discuss the management of the patient with other professionals (professionals i.e. LINDSAY Alegre, FACILITY ENVIRONMENTAL TECHNICIAN, lab, RT, psych nurse, licensed social worker, mud grinder, teacher, chief development officer, case manager specialist)? Give summary @ Case discussed with Dr. Muñiz Was smoking cessation discussed for >3mins.? @ -No Was critical care preformed (if so, how long)? @ -No Were there social determinants of health that impacted care today? How? (Homelessness, low income, unemployed, alcoholism, drug addiction, transportation, low edu. Level, literacy, decrease access to med. care, detention, rehab)? @ -No Was there de-escalation of care discussed even if they declined (Discuss DNR or withdrawal of care, Hospice)? DNR status @ -No What co-morbidities impacted this encounter? (DM, HTN, Smoking, COPD, CAD, Cancer, CVA, ARF, Chemo, Hep., AIDS, mental health diagnosis, sleep apnea, morbid obesity)? @ -Alcohol abuse Was patient admitted / discharged? Hospital course, mention meds given and route, prescriptions, significant lab abnormalities, going to OR and other pertinent info. @ -[47-year-old male presenting with alcohol withdrawal, states his last drink was approximately 12 hours prior to arrival. Patient has obvious tremor, he is hypertensive. He placed in seizure precautions, given 2 mg of Ativan and IV fluids. Laboratory studies are obtained which show thrombocytopenia, stable hemoglobin, normal white blood count, alcohol negative. He has hypokalemia which is replaced. He has a mild transaminitis and mild hyperbilirubinemia. Patient will be admitted for alcohol withdrawal Undiagnosed new problem with uncertain prognosis? @ -No Drug Therapy requiring intensive monitoring for toxicity (Heparin, Nitro, Insulin, Cardizem)? @ -No Were any procedures done? @ -No Diagnosis/symptom? @ -Alcohol withdrawal Acute, or Chronic, or Acute on Chronic? @ -Acute Uncomplicated (without systemic symptoms) or Complicated (systemic symptoms)? @ -default Side effects of treatment? @ -No Exacerbation, Progression, or Severe Exacerbation? @ -No Poses a threat to life or bodily function? How? (Chest pain, USA, SD, pneumonia, PE, COPD, DKA, ARF, appy, cholecystitis, CVA, Diverticulitis, Homicidal, Suici courtney, threat to staff... and all critical care pts) @ -[Yes, delirium tremens - Lab Data Result diagrams: 02/02/23 13:45 02/02/23 13:45 Lab Results 02/02/23 02/02/23 02/02/23 Range/Units 13:45 13:45 13:45 WBC 4.2 (3.8-10.6) k/uL RBC 4.74 (4.30-5.90) m/uL Hgb 14.8 (13.0-17.5) gm/dL Hct 42.2 (39.0-53.0) % MCV 89.0 (80.0-100.0) fL MCH 31.3 (25.0-35.0) pg MCHC 35.2 (31.0-37.0) g/dL RDW 12.9 (11.5-15.5) % Plt Count 66 L (150-450) k/uL MPV 9.8 Neutrophils % 66 % Lymphocytes % 26 % Monocytes % 5 % Eosinophils % 1 % Basophils % 0 % Neutrophils # 2.8 (1.3-7.7) k/uL Lymphocytes # 1.1 (1.0-4.8) k/uL Monocytes # 0.2 (0-1.0) k/uL Eosinophils # 0.0 (0-0.7) k/uL Basophils # 0.0 (0-0.2) k/uL PT 12.4 H (9.0-12.0) sec INR 1.2 H (<1.2) APTT 24.7 (22.0-30.0) sec Sodium 136 L (137-145) mmol/L Potassium 3.0 L (3.5-5.1) mmol/L Chloride 102 (98-107) mmol/L Carbon Dioxide 25 (22-30) mmol/L Anion Gap 9 mmol/L BUN 6 L (9-20) mg/dL Creatinine 0.70 (0.66-1.25) mg/dL Est GFR (CKD-EPI)AfAm >90 (>60 ml/min/1.73 sqM) Est GFR (CKD-EPI)NonAf >90 (>60 ml/min/1.73 sqM) Glucose 170 H (74-99) mg/dL Calcium 8.2 L (8.4-10.2) mg/dL Magnesium 1.4 L (1.6-2.3) mg/dL Total Bilirubin 1.3 (0.2-1.3) mg/dL AST 65 H (17-59) U/L ALT 57 H (4-49) U/L Alkaline Phosphatase 144 H (38-126) U/L Ammonia (<30) umol/L Total Protein 6.3 (6.3-8.2) g/dL Albumin 3.8 (3.5-5.0) g/dL Serum Alcohol <10 mg/dL 02/02/23 Range/Units 13:45 WBC (3.8-10.6) k/uL RBC (4.30-5.90) m/uL Hgb (13.0-17.5) gm/dL Hct (39.0-53.0) % MCV (80.0-100.0) fL MCH (25.0-35.0) pg MCHC (31.0-37.0) g/dL RDW (11.5-15.5) % Plt Count (150-450) k/uL MPV Neutrophils % % Lymphocytes % % Monocytes % % Eosinophils % % Basophils % % Neutrophils # (1.3-7.7) k/uL Lymphocytes # (1.0-4.8) k/uL Monocytes # (0-1.0) k/uL Eosinophils # (0-0.7) k/uL Basophils # (0-0.2) k/uL PT (9.0-12.0) sec INR (<1.2) APTT (22.0-30.0) sec Sodium (137-145) mmol/L Potassium (3.5-5.1) mmol/L Chloride (98-107) mmol/L Carbon Dioxide (22-30) mmol/L Anion Gap mmol/L BUN (9-20) mg/dL Creatinine (0.66-1.25) mg/dL Est GFR (CKD-EPI)AfAm (>60 ml/min/1.73 sqM) Est GFR (CKD-EPI)NonAf (>60 ml/min/1.73 sqM) Glucose (74-99) mg/dL Calcium (8.4-10.2) mg/dL Magnesium (1.6-2.3) mg/dL Total Bilirubin (0.2-1.3) mg/dL AST (17-59) U/L ALT (4-49) U/L Alkaline Phosphatase (38-126) U/L Ammonia 35 H (<30) umol/L Total Protein (6.3-8.2) g/dL Albumin (3.5-5.0) g/dL Serum Alcohol mg/dL Disposition Clinical Impression: Alcohol withdrawal, History of alcohol abuse Disposition: ADMITTED IP TO THIS [facility] Condition: Stable Is patient prescribed a controlled substance at d/c from ED?: No Referrals: Jennifer Darnell MD [Primary Care Provider] - 1-2 days Time of Disposition: 14:56
[2023-02-02 14:24] LABS: INR 1.2 (<1.2); Partial Thromboplastin Time 24.7 sec (22.0-30.0); Prothrombin Time 12.4 sec (9.0-12.0)
[2023-02-02] MEDS ORDERED: THIAMINE 100 MG/ML 2 ML VIAL IM STA (14:30)
[2023-02-02] MEDS ORDERED: LORazepam 2 MG/ML INJ IV PRN ×2 (14:30)
[2023-02-02 14:31] LABS: Basophils % (A) 0 %; Eosinophils % (A) 1 %; HCT 42.2 % (39.0-53.0); HGB 14.8 gm/dL (13.0-17.5); Lymphocytes # (A) 1.1 k/uL (1.0-4.8); Lymphocytes % (A) 26 %; MCH 31.3 pg (25.0-35.0); MCHC 35.2 g/dL (31.0-37.0); Mean Platelet Volume 9.8; Monocytes # (A) 0.2 k/uL (0-1.0); Monocytes % (A) 5 %; Neutrophils # (A) 2.8 k/uL (1.3-7.7); Neutrophils % (A) 66 %; RBC 4.74 m/uL (4.30-5.90); RDW 12.9 % (11.5-15.5); WBC 4.2 k/uL (3.8-10.6)
[2023-02-02 14:34] LABS: Platelet Count 66 k/uL (150-450)
[2023-02-02] MEDS ORDERED: ONDANSETRON 4 MG/2 ML VIAL IVP PRN (14:47)
[2023-02-02] MEDS ORDERED: NALOXONE 0.4 MG/ML 1 ML VIAL IV PRN (14:47)
[2023-02-02 14:55] LABS: ALT 57 U/L (4-49); AST 65 U/L (17-59); African American GFR (CKD) >90 (>60 ml/min/1.73 sqM); Albumin 3.8 g/dL (3.5-5.0); Alcohol <10 mg/dL; Alkaline Phosphatase 144 U/L (38-126); Anion Gap 9 mmol/L; Blood Urea Nitrogen 6 mg/dL (9-20); Calcium 8.2 mg/dL (8.4-10.2); Carbon Dioxide 25 mmol/L (22-30); Chloride 102 mmol/L (98-107); Glucose 170 mg/dL (74-99); Magnesium 1.4 mg/dL (1.6-2.3); Non-African American GFR(CKD) >90 (>60 ml/min/1.73 sqM); Sodium 136 mmol/L (137-145); Total Bilirubin 1.3 mg/dL (0.2-1.3); Total Protein 6.3 g/dL (6.3-8.2)
[2023-02-02] MEDS ORDERED: POTASSIUM CHLORIDE ER 20 MEQ TAB.ER PO STA (14:59)
[2023-02-02] MEDS ORDERED: MAGNESIUM SULFATE-D5W PMX 1 GM in DEXTROSE/WATER 1 100ML.BAG IVPB ONE (15:00)
[2023-02-02] MEDS: SODIUM CHLORIDE 0.9% 1,000 ML IV SCH (15:34)
[2023-02-02] MEDS: LORazepam 2 MG/ML INJ IV PRN (21:26)
[2023-02-03] MEDS: SODIUM CHLORIDE 0.9% 1,000 ML IV SCH ×2 (03:41→16:32)
[2023-02-03] MEDS: LORazepam 2 MG/ML INJ IV PRN ×3 (03:53→22:37)
[2023-02-03] MEDS: THIAMINE 100 MG TAB PO SCH (08:45)
[2023-02-03 09:21] VITALS: BMI 26.6
[2023-02-03 12:23] LABS: ALT 47 U/L (4-49); AST 55 U/L (17-59); African American GFR (CKD) >90 (>60 ml/min/1.73 sqM); Albumin 3.3 g/dL (3.5-5.0); Albumin/Globulin Ratio 1.4; Alkaline Phosphatase 116 U/L (38-126); Anion Gap 3 mmol/L; Blood Urea Nitrogen 6 mg/dL (9-20); Calcium 8.7 mg/dL (8.4-10.2); Carbon Dioxide 28 mmol/L (22-30); Chloride 108 mmol/L (98-107); Globulin 2.4 g/dL; Glucose 96 mg/dL (74-99); Non-African American GFR(CKD) >90 (>60 ml/min/1.73 sqM); Potassium 4.2 mmol/L (3.5-5.1); Sodium 139 mmol/L (137-145); Total Bilirubin 1.9 mg/dL (0.2-1.3); Total Protein 5.7 g/dL (6.3-8.2)
[2023-02-03 12:39] LABS: Basophils % (A) 1 %; Eosinophils # (A) 0.1 k/uL (0-0.7); Eosinophils % (A) 2 %; HGB 14.5 gm/dL (13.0-17.5); Lymphocytes # (A) 0.9 k/uL (1.0-4.8); Lymphocytes % (A) 24 %; MCH 31.2 pg (25.0-35.0); MCHC 34.6 g/dL (31.0-37.0); MCV 90.1 fL (80.0-100.0); Mean Platelet Volume 10.7; Monocytes # (A) 0.2 k/uL (0-1.0); Monocytes % (A) 6 %; Neutrophils # (A) 2.5 k/uL (1.3-7.7); Neutrophils % (A) 67 %; RBC 4.66 m/uL (4.30-5.90); RDW 12.9 % (11.5-15.5); WBC 3.8 k/uL (3.8-10.6)
[2023-02-03 12:50] LABS: Platelet Count 65 k/uL (150-450)
--- NOTE | 2023-02-03 14:41 | P.HPIM ---
History of Present Illness H&P Date: 02/03/23 History of present illness; patient is a 47-year-old gentleman past history of a lcohol abuse, liver disease presented to the ER for alcohol detox. Patient stated he has been sober for more than 5 years but over the course of last year he started drinking again. Patient stated that social stressors in his life contributed to him drinking again. Denies any auditory or visual h allucinations. Denies any suicidal or homicidal thoughts . Denies any chest pain or shortness of breath. Denies any nausea, vomiting abdominal pain. Patient is complaining of tremors. Denies any lightheadedness or dizziness. Denies any unsteady gait. Because of alcohol abuse, patient came to the ER Initial lab work done in the ER showed WBC 4.2, hemoglobin 14.8, platelet count 66, sodium 136, potassium 3, BUN 6, total bilirubin 1.3, AST 65, ALT is 57, alk phos 144 Patient admitted to medicine service REVIEW OF SYSTEMS: CONSTITUTIONAL: No fever, no malaise, no fatigue. Very shaky HEENT: No recent visual problems or hearing problems. Denied any sore throat. CARDIOVASCULAR: No chest pain, orthopnea, PND, no palpitations, no syncope. PULMONARY: No shortness of breath, no cough, no hemoptysis. GASTROINTESTINAL: No diarrhea, no nausea, no vomiting, no abdominal pain. NEUROLOGICAL: No headaches, no weakness, no numbness. Complaining of tremors HEMATOLOGICAL: Denies any bleeding or petechiae. GENITOURINARY: Denies any burning micturition, frequency, or urgency. MUSCULOSKELETAL/RHEUMATOLOGICAL: Denies any joint pain, swelling, or any muscle pain. ENDOCRINE: Denies any polyuria or polydipsia. The rest of the 14-point review of systems is negative. PHYSICAL EXAMINATION: GENERAL: The patient is alert and oriented x3, not in any acute distress. Shaky and complaining of tremors HEENT: Pupils are round and equally reacting to light. EOMI. No scleral icterus. No conjunctival pallor. Normocephalic, atraumatic. No pharyngeal erythema. No thyromegaly. CARDIOVASCULAR: S1 and S2 present. No murmurs, rubs, or gallops. PULMONARY: Chest is clear to auscultation, no wheezing or crackles. ABDOMEN: Soft, nontender, nondistended, normoactive bowel sounds. No palpable organomegaly. MUSCULOSKELETAL: No joint swelling or deformity. EXTREMITIES: No cyanosis, clubbing, or pedal edema. NEUROLOGICAL: Gross neurological examination did not reveal any focal deficits. SKIN: No rashes. Assessment and plan Alcohol abuse Hypokalemia Elevated LFTs Monitor vital signs Monitor CBC Monitor CMP Continue telemetry monitoring Continue CIWA protocol Continue high dose thiamine and folic acid Continue IV fluids Social work consulted Labs and medication were reviewed.. Continue same treatment. Continue with symptomatic treatment. Resume home medication. Monitor labs and vitals. DVT and GI prophylaxis. Further recommendations as per clinical course of the patient Dictation was produced using [employer] dictation software. please excuse any grammatical, word or spelling errors. Past Medical History Additional Past Medical History / Comment(s): liver failure, ETOH History of Any Multi-Drug Resistant Organisms: MRSA Date of last positivie culture/infection: 08/21/16 MDRO Source:: Abdomen Past Surgical History: Tonsillectomy Past Anesthesia/Blood Transfusion Reactions: No Reported Reaction Past Psychological History: No Psychological Hx Reported Smoking Status: Current every day smoker Past Alcohol Use History: Daily, Heavy Additional Past Alcohol Use History / Comment(s): Patient states he drinks 1 pint to a 5th a day. Past Drug Use History: Cocaine, Marijuana, Methamphetamine - Past Family History Family Family Medical History: No Reported History Medications and Allergies Home Medications Medication Instructions Recorded Confirmed Type No Known Home Medications 02/02/23 02/02/23 History Allergies Allergy/AdvReac Type Severity Reaction Status Date / Time No Known Allergies Allergy Verified 02/02/23 14:54 Physical Exam Vitals: Vital Signs Temp Pulse Pulse Resp BP BP Pulse Ox 02/03/23 07:00 97.7 F 55 L 16 119/75 99 02/03/23 02:00 97.9 F 59 L 16 145/82 97 02/02/23 20:30 98.7 F 71 17 149/79 97 02/02/23 19:25 79 18 130/84 95 02/02/23 18:06 97.3 F L 84 18 139/86 95 02/02/23 13:14 98.3 F 69 20 169/89 99 Intake and Output 02/02/23 02/03/23 02/03/23 22:59 06:59 14:59 Intake Total 480 Balance 480 Intake: Oral 480 Other: # Voids 1 2 Weight 77.111 kg 77.111 kg Results CBC & Chem 7: 02/02/23 13:45 02/02/23 13:45 Labs: Abnormal Lab Results - Last 24 Hours (Table) 02/02/23 02/02/23 02/02/23 Range/Units 13:45 13:45 13:45 Plt Count 66 L (150-450) k/uL PT 12.4 H (9.0-12.0) sec INR 1.2 H (<1.2) Sodium 136 L (137-145) mmol/L Potassium 3.0 L (3.5-5.1) mmol/L BUN 6 L (9-20) mg/dL Glucose 170 H (74-99) mg/dL Calcium 8.2 L (8.4-10.2) mg/dL Magnesium 1.4 L (1.6-2.3) mg/dL AST 65 H (17-59) U/L ALT 57 H (4-49) U/L Alkaline Phosphatase 144 H (38-126) U/L Ammonia (<30) umol/L 02/02/23 Range/Units 13:45 Plt Count (150-450) k/uL PT (9.0-12.0) sec INR (<1.2) Sodium (137-145) mmol/L Potassium (3.5-5.1) mmol/L BUN (9-20) mg/dL Glucose (74-99) mg/dL Calcium (8.4-10.2) mg/dL Magnesium (1.6-2.3) mg/dL AST (17-59) U/L ALT (4-49) U/L Alkaline Phosphatase (38-126) U/L Ammonia 35 H (<30) umol/L Thrombosis Risk Factor Assmnt - Choose All That Apply Each Factor Represents 1 point: Age 41-60 years, Obesity (BMI >25) Other Risk Factors: No Thrombosis Risk Factor Assessment Total Risk Factor Score: 2 Thrombosis Risk Factor Assessment Level: Low Risk
[2023-02-04] MEDS: SODIUM CHLORIDE 0.9% 1,000 ML IV SCH (05:47)
[2023-02-04] MEDS: LORazepam 2 MG/ML INJ IV PRN ×3 (05:57→13:22)
[2023-02-04] MEDS: THIAMINE 100 MG TAB PO SCH (07:30)
--- NOTE | 2023-02-04 12:12 | P.PN ---
Subjective Progress Note Date: 02/04/23 patient is a 47-year-old gentleman past history of alcohol abuse, liver disease presented to the ER for alcohol detox. Patient stated he has been sober for more than 5 years but over the course of last year he started drinking again. Patient stated that social stressors in his life contributed to him drinking again. Denies any auditory or visual hallucinations. Denies any suicidal or homicidal thoughts . Denies any chest pain or shortness of breath. Denies any nausea, vomiting abdominal pain. Patient is complaining of tremors. Denies any lightheadedness or dizziness. Denies any unsteady gait. Because of alcohol abuse, patient came to the ER Initial lab work done in the ER showed WBC 4.2, hemoglobin 14.8, platelet count 66, sodium 136, potassium 3, BUN 6, total bilirubin 1.3, AST 65, ALT is 57, alk phos 144 Patient admitted to medicine service 02/04. Patient seen and examined. Still complaining of being shaky and unsteady on gait. Denies any auditory or visual hallucinations. REVIEW OF SYSTEMS: CONSTITUTIONAL: No fever, no malaise,. CARDIOVASCULAR: No chest pain, no palpitations, no syncope. PULMONARY: No shortness of breath, no cough, GASTROINTESTINAL: No diarrhea, no nausea, no vomiting, no abdominal pain. NEUROLOGICAL: No headaches, no weakness, PHYSICAL EXAMINATION: GENERAL: The patient is alert and oriented x3, not in any acute distress. Well developed, well nourished. HEENT: Pupils are round and equally reacting to light. EOMI. No scleral icterus. No conjunctival pallor. Normocephalic, atraumatic. No pharyngeal erythema. No thyromegaly. CARDIOVASCULAR: S1 and S2 present. No murmurs, rubs, or gallops. PULMONARY: Chest is clear to auscultation, no wheezing or crackles. ABDOMEN: Soft, nontender, nondistended, normoactive bowel sounds. No palpable organomegaly. MUSCULOSKELETAL: No joint swelling or deformity. EXTREMITIES: No cyanosis, clubbing, or pedal edema. NEUROLOGICAL: Gross neurological examination did not reveal any focal deficits. SKIN: No rashes. Assessment and plan Alcohol abuse Hypokalemia Elevated LFTs Monitor vital signs Monitor CBC Monitor CMP Continue CIWA protocol Continue high dose thiamine and folic acid Continue IV fluids Labs and medication were reviewed.. Continue same treatment. Continue with symptomatic treatment. Resume home medication. Monitor labs and vitals. DVT and GI prophylaxis. Further recommendations as per clinical course of the patient Dictation was produced using [employer] dictation software. please excuse any grammatical, word or spelling errors. Objective - Vital Signs Vital signs: Vital Signs Temp 98.2 F 02/04/23 07:18 Pulse 59 L 02/04/23 07:18 Resp 17 02/04/23 07:18 BP 161/74 02/04/23 07:18 Pulse Ox 99 02/04/23 07:18 FiO2 Intake & Output 02/03/23 02/04/23 02/04/23 18:59 06:59 18:59 Intake Total 400 Balance 400 Weight 77.111 kg Intake: Oral 400 Other: Voiding Method Toilet # Voids 2 2 - Labs CBC & Chem 7: 02/03/23 11:41 02/03/23 11:41 Labs: Abnormal Lab Results - Last 24 Hours (Table) 02/03/23 02/03/23 Range/Units 11:41 11:41 Plt Count 65 L (150-450) k/uL Lymphocytes # 0.9 L (1.0-4.8) k/uL Chloride 108 H (98-107) mmol/L BUN 6 L (9-20) mg/dL Total Bilirubin 1.9 H (0.2-1.3) mg/dL Total Protein 5.7 L (6.3-8.2) g/dL Albumin 3.3 L (3.5-5.0) g/dL
[2023-02-05] MEDS: LORazepam 2 MG/ML INJ IV PRN (04:32)
[2023-02-05 08:27] VITALS: BP 132/82; PULSE 57; RESP 18; TEMP 98
[2023-02-05] MEDS: THIAMINE 100 MG TAB PO SCH (09:05)
[2023-02-05] MEDS: SODIUM CHLORIDE 0.9% 1,000 ML IV SCH ×2 (09:05→12:49)
--- NOTE | 2023-02-05 13:10 | P.DS ---
Providers Date of admission: 02/02/23 14:47 Expected date of discharge: 02/05/23 Attending physician: Aurora Coto Primary care physician: [facility] Course: Discharge diagnoses; Alcohol abuse Hypokalemia Elevated LFTs Hospital course; patient is a 47-year-old gentleman past history of alcohol abuse, liver disease presented to the ER for alcohol detox. Patient stated he has been sober for more than 5 years but over the course of last year he started drinking again. Patient stated that social stressors in his life contributed to him drinking again. Denies any auditory or visual hallucinations. Denies any suicidal or homicidal thoughts . Denies any chest pain or shortness of breath. Denies any nausea, vomiting abdominal pain. Patient is complaining of tremors. Denies any lightheadedness or dizziness. Denies any unsteady gait. Because of alcohol abuse, patient came to the ER Initial lab work done in the ER showed WBC 4.2, hemoglobin 14.8, platelet count 66, sodium 136, potassium 3, BUN 6, total bilirubin 1.3, AST 65, ALT is 57, alk phos 144 Patient admitted to medicine service 02/04. Patient seen and examined. Still complaining of being shaky and unsteady on gait. Denies any auditory or visual hallucinations. 02/05. Patient seen and examined. CIWA scores have been low, patient medically cleared for discharge. Information given regarding outpatient alcohol rehab PHYSICAL EXAMINATION: GENERAL: The patient is alert and oriented x3, not in any acute distress. Well developed, well nourished. HEENT: Pupils are round and equally reacting to light. EOMI. No scleral icterus. No conjunctival pallor. Normocephalic, atraumatic. No pharyngeal erythema. No thyromegaly. CARDIOVASCULAR: S1 and S2 present. No murmurs, rubs, or gallops. PULMONARY: Chest is clear to auscultation, no wheezing or crackles. ABDOMEN: Soft, nontender, nondistended, normoactive bowel sounds. No palpable organomegaly. MUSCULOSKELETAL: No joint swelling or deformity. EXTREMITIES: No cyanosis, clubbing, or pedal edema. NEUROLOGICAL: Gross neurological examination did not reveal any focal deficits. SKIN: No rashes. Dictation was produced using [employer] software. please excuse any grammatical, word or spelling errors. Patient Condition at Discharge: Stable Plan - Discharge Summary Discharge Rx Participant: No New Discharge Prescriptions: New Folic Acid 1 mg PO DAILY #30 tablet Thiamine [Vitamin B-1] 100 mg PO DAILY #30 tab Discharge Medication List Folic Acid 1 mg PO DAILY #30 tablet 02/05/23 [Rx] Thiamine [Vitamin B-1] 100 mg PO DAILY #30 tab 02/05/23 [Rx] Follow up Appointment(s)/Referral(s): Jennifer Darnell MD [Primary Care Provider] - 1-2 days Discharge/Stand Alone Forms: [facility], Outpatient Counseling, In Substance Abuse Facilities Discharge Disposition: HOME SELF-CARE
== END 2023-02-05 14:08 | disposition home or self-care (01) ==
LOC: EC 13:06 → 6NMEDSUR 14:47 → 4SSUR 19:43
PROVIDERS: ADMIT Hospitalist; ATTEND Hospitalist
DX: F10.139 Alcohol abuse with withdrawal, unspecified (principal); E87.6 Hypokalemia; F17.200 Nicotine dependence, unspecified, uncomplicated; E66.9 Obesity, unspecified; Z68.26 Body mass index [BMI] 26.0-26.9, adult; Z63.8 Other specified problems related to primary support group; Z86.14 Personal history of Methicillin resistant Staphylococcus aureus infection; Z71.41 Alcohol abuse counseling and surveillance of alcoholic
CPT/HCPCS: 96376 ×3; 96361 ×2; 96365; 96372; 96375; 99285; 36415; 80053 ×2; 82140; 83735; 85025 ×2; 85610; 85730; G0378 ×5; G0480; J2060 ×4; J3411; J2405; J3475; 80320

== ENCOUNTER 2023-02-08 05:40 | Observation (INO) | payer OTHER ==
[2023-02-08] MEDS ORDERED: SODIUM CHLORIDE 0.9% 1,000 ML IV STA (06:16)
[2023-02-08] MEDS ORDERED: THIAMINE 100 MG/ML 2 ML VIAL IM STA (06:16)
[2023-02-08] MEDS ORDERED: ONDANSETRON 4 MG/2 ML VIAL IVP STA ×2 (06:17→07:43)
--- NOTE | 2023-02-08 06:26 | ED ---
Alcohol HPI - General Chief Complaint: Alcohol Stated Complaint: Alcohol Detox Time Seen by Provider: 02/08/23 05:57 Source: patient, RN notes reviewed Mode of arrival: ambulatory Limitations: no limitations - History of Present Illness Initial Comments: This is a 47-year-old male who presents to the emergency department for alcohol intoxication. States that his last drink was approximately 15 minutes prior to arrival. He consumes up to a half gallon of alcohol each day. He has been to [facility] 5 times, most recently one year ago. States that he has an appointment with them tomorrow and is "trying to stay alive until then". Denies any history of withdrawal seizures, but states that he gets very shaky and nauseous. He is fairly emotional and denies any active suicidal or homicidal ideations at this time, but does experience frequent episodes where he feels suicidal and would like to speak with EPS. Denies any fevers, chills, sore throat, cough, dyspnea, chest pain, palpitations, abdominal pain, vomiting, diarrhea, back pain, or headaches. MD Complaint: alcohol intoxication - Related Data Previous Rx's Medication Instructions Recorded Folic Acid 1 mg PO DAILY #30 tablet 02/05/23 Thiamine [Vitamin B-1] 100 mg PO DAILY #30 tab 02/05/23 Allergies Allergy/AdvReac Type Severity Reaction Status Date / Time No Known Allergies Allergy Verified 02/08/23 07:41 Review of Systems ROS Statement: Those systems with pertinent positive or pertinent negative responses have been documented in the HPI. ROS Other: All systems not noted in ROS Statement are negative. Past Medical History Additional Past Medical History / Comment(s): liver failure, ETOH History of Any Multi-Drug Resistant Organisms: MRSA Date of last positivie culture/infection: 08/21/16 MDRO Source:: Abdomen Past Surgical History: Tonsillectomy Past Anesthesia/Blood Transfusion Reactions: No Reported Reaction Past Psychological History: No Psychological Hx Reported Smoking Status: Current every day smoker Past Alcohol Use History: Daily, Heavy Past Drug Use History: Cocaine, Marijuana, Methamphetamine - Past Family History Family Family Medical History: No Reported History General Exam Limitations: no limitations General appearance: alert, in no apparent distress Head exam: Present: atraumatic, normocephalic, normal inspection Respiratory exam: Present: normal lung sounds bilaterally. Absent: respiratory distress, wheezes, rales, rhonchi, stridor Cardiovascular Exam: Present: regular rate, normal rhythm, normal heart sounds. Absent: systolic murmur, diastolic murmur, rubs, gallop, clicks Neurological exam: Present: alert, oriented X3, CN II-XII intact Psychiatric exam: Present: normal affect, normal mood Skin exam: Present: warm, dry, intact, normal color. Absent: rash Course Vital Signs 02/08/23 05:45 Temperature 97.7 F Pulse Rate 74 Respiratory 18 Rate Blood Pressure 176/105 O2 Sat by Pulse 97 Oximetry Medical Decision Making - Medical Decision Making This is a 47-year-old male who presents to the emergency department for alcohol intoxication. Was pt. sent in by a medical professional or institution? @ -No Did you speak to anyone other than the patient for history? @ -No Did you review nursing and triage notes? @ -Yes, and I agree, it is accurate with regards to the patient's symptoms. Were old charts reviewed? @ -No Differential Diagnosis? @ -Differential Alcohol Intoxication: Sympathomimetic syndrome, anti-muscarinic syndrome, serotonin syndrome, neuroleptic malignant syndrome, thyrotoxicosis, encephalitis, acute psychosis, hypoglycemia, trauma, sepsis. This is not meant to be an all-inclusive list. EKG interpreted by me (3pts min.)? @ -Not obtained X-rays interpreted by me (1pt min.)? @ -Not obtained CT interpreted by me (1pt min.)? @ -Not obtained U/S interpreted by me (1pt. min.)? @ -Not obtained What testing was considered but not performed? (CT, X-rays, U/S, labs)? Why? @ -None What meds were considered but not given? Why? @ -None Did you discuss the management of the patient with other professionals? @ -Yes, Arianna Meyer with [facility] who accepts the patient for admission. Did you reconcile home meds? @ -No Was smoking cessation discussed for >3mins.? @ -I discussed smoking cessation for greater than 3 minutes. The risk of smoking were discussed with the patient including but not limited to risks of cancer, stroke, coronary artery disease and COPD. Also discussed with patient were multiple methods of quitting smoking. Lastly we discussed the financial cost of smoking. Was critical care preformed (if so, how long)? @ -No Were there social determinants of health that impacted care today? How? (Homelessness, low income, unemployed, alcoholism, drug addiction, transportation, low edu. Level, literacy, decrease access to med. care, care home, rehab)? @ -Alcoholism and drug addiction, all increasing his risk for health problems and leading to emergency department visits for withdrawals and intoxication. Was there de-escalation of care discussed even if they declined? (Discuss DNR or withdrawal of care, Hospice)? @ -No What co-morbidities impacted this encounter? (DM, HTN, Smoking, COPD, CAD, Cancer, CVA, Hep., AIDS, mental health diagnosis, sleep apnea, morbid obesity)? @ -Alcoholism, smoking, polysubstance abuse Was patient admitted / discharged? @ -Admitted. Lab work reveals an alcohol level of 368. Elevated liver enzymes are consistent when compared with prior values. It is also consistent with his history of alcohol abuse. Lab work was otherwise nonactionable. Platelets are improved when compared with prior. Patient given IV fluids, Zofran, and Thiamine. Patient was very emotional and admits to intermittent suicidal ideations and would like to speak with EPS. Based on his current alcohol level of 368, he would not be considered sober for 15 hours at 21:30 this evening. Patient admitted to medicine for alcohol intoxication. [facility] protocol initiated. EPS eval ordered for 21:30. If the patient does not meet inpatient psychiatric admission criteria, the hope is that he can be discharged to [facility] tomorrow where he has an appointment scheduled. Undiagnosed new problem with uncertain prognosis? @ -None Drug Therapy requiring intensive monitoring for toxicity (Heparin, Nitro, Insulin, Cardizem)? @ -None Were any procedures done? @ -None Diagnosis/symptom? @ -Alcohol intoxication, suicidal ideations Acute, or Chronic, or Acute on Chronic? @ -Acute Uncomplicated (without systemic symptoms) or Complicated (systemic symptoms)? @ -Uncomplicated Side effects of treatment? @ -None Exacerbation, Progression, or Severe Exacerbation] @ -Not applicable Poses a threat to life or bodily function? @ -Yes This case was discussed in detail with the attending ED physician, Dr. Freed. Presentation, findings, and treatment plan discussed in detail as well. - Lab Data Result diagrams: 02/08/23 06:33 02/08/23 06:33 Lab Results 02/08/23 02/08/23 02/08/23 Range/Units 06:33 06:33 06:33 WBC 6.5 (3.8-10.6) k/uL RBC 5.25 (4.30-5.90) m/uL Hgb 16.3 (13.0-17.5) gm/dL Hct 47.9 (39.0-53.0) % MCV 91.2 (80.0-100.0) fL MCH 31.0 (25.0-35.0) pg MCHC 34.0 (31.0-37.0) g/dL RDW 13.4 (11.5-15.5) % Plt Count 99 L D (150-450) k/uL MPV 9.7 Neutrophils % 55 % Lymphocytes % 33 % Monocytes % 5 % Eosinophils % 4 % Basophils % 1 % Neutrophils # 3.6 (1.3-7.7) k/uL Lymphocytes # 2.2 (1.0-4.8) k/uL Monocytes # 0.3 (0-1.0) k/uL Eosinophils # 0.3 (0-0.7) k/uL Basophils # 0.0 (0-0.2) k/uL PT 12.0 (9.0-12.0) sec INR 1.2 H (<1.2) Sodium 148 H (137-145) mmol/L Potassium 4.0 (3.5-5.1) mmol/L Chloride 110 H (98-107) mmol/L Carbon Dioxide 26 (22-30) mmol/L Anion Gap 12 mmol/L BUN 11 (9-20) mg/dL Creatinine 0.84 (0.66-1.25) mg/dL Est GFR (CKD-EPI)AfAm >90 (>60 ml/min/1.73 sqM) Est GFR (CKD-EPI)NonAf >90 (>60 ml/min/1.73 sqM) Glucose 99 (74-99) mg/dL Calcium 8.1 L (8.4-10.2) mg/dL Magnesium 2.2 (1.6-2.3) mg/dL Total Bilirubin 0.8 (0.2-1.3) mg/dL AST 336 H (17-59) U/L ALT 206 H (4-49) U/L Alkaline Phosphatase 139 H (38-126) U/L Total Protein 7.3 (6.3-8.2) g/dL Albumin 4.4 (3.5-5.0) g/dL Lipase 196 (23-300) U/L Serum Alcohol 368 H* mg/dL Disposition Clinical Impression: Alcoholic intoxication, Suicidal ideations, Nicotine dependence Disposition: ADMITTED IP TO THIS HOSP
[2023-02-08 06:51] LABS: ALT 206 U/L (4-49); AST 336 U/L (17-59); African American GFR (CKD) >90 (>60 ml/min/1.73 sqM); Albumin 4.4 g/dL (3.5-5.0); Alkaline Phosphatase 139 U/L (38-126); Anion Gap 12 mmol/L; Blood Urea Nitrogen 11 mg/dL (9-20); Calcium 8.1 mg/dL (8.4-10.2); Carbon Dioxide 26 mmol/L (22-30); Chloride 110 mmol/L (98-107); Glucose 99 mg/dL (74-99); Lipase 196 U/L (23-300); Magnesium 2.2 mg/dL (1.6-2.3); Non-African American GFR(CKD) >90 (>60 ml/min/1.73 sqM); Sodium 148 mmol/L (137-145); Total Bilirubin 0.8 mg/dL (0.2-1.3); Total Protein 7.3 g/dL (6.3-8.2)
[2023-02-08 07:00] LABS: Alcohol 368 mg/dL
[2023-02-08 07:06] LABS: INR 1.2 (<1.2)
[2023-02-08 07:07] LABS: Basophils % (A) 1 %; Eosinophils # (A) 0.3 k/uL (0-0.7); Eosinophils % (A) 4 %; HCT 47.9 % (39.0-53.0); HGB 16.3 gm/dL (13.0-17.5); Lymphocytes # (A) 2.2 k/uL (1.0-4.8); Lymphocytes % (A) 33 %; MCV 91.2 fL (80.0-100.0); Mean Platelet Volume 9.7; Monocytes # (A) 0.3 k/uL (0-1.0); Monocytes % (A) 5 %; Neutrophils # (A) 3.6 k/uL (1.3-7.7); Neutrophils % (A) 55 %; RBC 5.25 m/uL (4.30-5.90); RDW 13.4 % (11.5-15.5); WBC 6.5 k/uL (3.8-10.6)
[2023-02-08 07:08] LABS: Platelet Count 99 k/uL (150-450)
[2023-02-08] MEDS ORDERED: LORazepam 2 MG/ML INJ IV STA (07:43)
[2023-02-08] MEDS ORDERED: ONDANSETRON 4 MG/2 ML VIAL IVP PRN (08:18)
[2023-02-08] MEDS ORDERED: ACETAMINOPHEN TAB 325 MG TAB PO PRN (08:18)
[2023-02-08] MEDS ORDERED: NALOXONE 0.4 MG/ML 1 ML VIAL IV PRN (08:18)
[2023-02-08] MEDS ORDERED: KETOROLAC 15 MG/ML 1 ML VIAL IVP PRN (08:18)
[2023-02-08] MEDS ORDERED: LORazepam 2 MG/ML INJ IV PRN ×3 (08:20)
[2023-02-08] MEDS ORDERED: LORazepam 1 MG TAB PO PRN (08:20)
[2023-02-08 10:34] LABS: Amphetamine Screen,Urine Not Detected (NotDetected); Barbiturate Screen,Urine Not Detected (NotDetected); Benzodiazepines Screen,Urine Detected (NotDetected); Cocaine Screen,Urine Not Detected (NotDetected); Methadone Screen, Urine Not Detected (NotDetected); Opiate Screen,Urine Not Detected (NotDetected); Oxycodone Screen, Urine Not Detected (NotDetected); Phencyclidine Screen,Urine Not Detected (NotDetected); Tricyclic Antidepressant,Urine Not Detected (NotDetected); Urn Cannabinoid Scrn Detected (NotDetected)
[2023-02-08] MEDS: PANTOPRAZOLE 40 MG/10 ML VIAL IV SCH (11:34)
[2023-02-08] MEDS: LORazepam 2 MG/ML INJ IV PRN ×4 (12:31→23:30)
--- NOTE | 2023-02-08 13:12 | P.HPIM ---
History of Present Illness 47-year-old male is admitted for all call intoxication. Patient has alcohol drink was last night patient is found to have about 350 for serum alcohol level. Patient wanted to go to [facility] has an appointment tomorrow to his [facility]. Patient drinks about 1 gallon of hard liquor every single day has been drinking like that for a week patient attempted multiple times to quit alcohol. Patient had significant withdrawals in the past presently doesn't have any withdrawals at this time. Patient denied any suicidal ideations. Urine drug screen is positive for benzodiazepines marijuana. Does smoke about the a pack of cigarettes per week. REVIEW OF SYSTEMS: CONSTITUTIONAL: No fever, no malaise, no fatigue. HEENT: No recent visual problems or hearing problems. Denied any sore throat. CARDIOVASCULAR: No chest pain, orthopnea, PND, no palpitations, no syncope. PULMONARY: No shortness of breath, no cough, no hemoptysis. GASTROINTESTINAL: No diarrhea, no nausea, no vomiting, no abdominal pain. NEUROLOGICAL: No headaches, no weakness, no numbness. HEMATOLOGICAL: Denies any bleeding or petechiae. GENITOURINARY: Denies any burning micturition, frequency, or urgency. MUSCULOSKELETAL/RHEUMATOLOGICAL: Denies any joint pain, swelling, or any muscle pain. ENDOCRINE: Denies any polyuria or polydipsia. The rest of the 14-point review of systems is negative. PHYSICAL EXAMINATION: GENERAL: The patient is alert and oriented x3, not in any acute distress. Well developed, well nourished. HEENT: Pupils are round and equally reacting to light. EOMI. No scleral icterus. No conjunctival pallor. Normocephalic, atraumatic. No pharyngeal erythema. No thyromegaly. CARDIOVASCULAR: S1 and S2 present. No murmurs, rubs, or gallops. PULMONARY: Chest is clear to auscultation, no wheezing or crackles. ABDOMEN: Soft, nontender, nondistended, normoactive bowel sounds. No palpable organomegaly. MUSCULOSKELETAL: No joint swelling or deformity. EXTREMITIES: No cyanosis, clubbing, or pedal edema. NEUROLOGICAL: Gross neurological examination did not reveal any focal deficits. SKIN: No rashes. Assessment and plan -Alcohol intoxication: Patient is more sober now continue with IV fluids with IV fluids will be switched to half-normal saline because of hyperkalemia and hypernatremia. Thiamine multivitamin supplementation -Alcohol withdrawal: Patient is expected to alcohol withdraws and treat with At [place]. -Alcoholic hepatitis expected to improve with cessation of alcohol -Nicotine use and marijuana use: Counseling was provided will order 7 g of nicotine patch - DVT prophylaxis: Lovenox next and GI prophylaxis Protonix Past Medical History Additional Past Medical History / Comment(s): liver failure, ETOH History of Any Multi-Drug Resistant Organisms: MRSA Date of last positivie culture/infection: 08/21/16 MDRO Source:: Abdomen Past Surgical History: Tonsillectomy Past Anesthesia/Blood Transfusion Reactions: No Reported Reaction Past Psychological History: No Psychological Hx Reported Smoking Status: Current every day smoker Past Alcohol Use History: Daily, Heavy Past Drug Use History: Cocaine, Marijuana, Methamphetamine - Past Family History Family Family Medical History: No Reported History Medications and Allergies Home Medications Medication Instructions Recorded Confirmed Type Folic Acid 1 mg PO DAILY #30 tablet 02/05/23 02/08/23 Rx Thiamine [Vitamin B-1] 100 mg PO DAILY #30 tab 02/05/23 02/08/23 Rx Allergies Allergy/AdvReac Type Severity Reaction Status Date / Time No Known Allergies Allergy Verified 02/08/23 07:41 Physical Exam Vitals: Vital Signs Temp Pulse Resp BP Pulse Ox 02/08/23 10:58 77 20 150/106 96 02/08/23 10:06 80 16 145/102 98 02/08/23 05:45 97.7 F 74 18 176/105 97 Intake and Output 02/07/23 02/08/23 02/08/23 22:59 06:59 14:59 Other: Weight 77.111 kg Results CBC & Chem 7: 02/08/23 06:33 02/08/23 06:33 Labs: Abnormal Lab Results - Last 24 Hours (Table) 02/08/23 02/08/23 02/08/23 Range/Units 06:33 06:33 06:33 Plt Count 99 L D (150-450) k/uL INR 1.2 H (<1.2) Sodium 148 H (137-145) mmol/L Chloride 110 H (98-107) mmol/L Calcium 8.1 L (8.4-10.2) mg/dL AST 336 H (17-59) U/L ALT 206 H (4-49) U/L Alkaline Phosphatase 139 H (38-126) U/L U Benzodiazepines Scrn (NotDetected) U Marijuana (THC) Screen (NotDetected) Serum Alcohol 368 H* mg/dL 02/08/23 Range/Units 10:11 Plt Count (150-450) k/uL INR (<1.2) Sodium (137-145) mmol/L Chloride (98-107) mmol/L Calcium (8.4-10.2) mg/dL AST (17-59) U/L ALT (4-49) U/L Alkaline Phosphatase (38-126) U/L U Benzodiazepines Scrn Detected H (NotDetected) U Marijuana (THC) Screen Detected H (NotDetected) Serum Alcohol mg/dL
[2023-02-08] MEDS: NICOTINE 7MG/24HR PATCH TRANSDERM SCH (14:52)
[2023-02-08] MEDS: SODIUM CHLORIDE 0.45% 1,000 ML IV SCH (16:11)
[2023-02-08] MEDS ORDERED: MELATONIN 5 MG TABLET PO PRN (20:05)
[2023-02-09] MEDS: LORazepam 2 MG/ML INJ IV PRN ×6 (01:35→23:40)
[2023-02-09] MEDS: SODIUM CHLORIDE 0.45% 1,000 ML IV SCH ×2 (06:48→16:28)
[2023-02-09] MEDS: ENOXAPARIN 40 MG/0.4 ML SYRINGE SQ SCH (08:41)
[2023-02-09] MEDS: PANTOPRAZOLE 40 MG/10 ML VIAL IV SCH (08:41)
[2023-02-09] MEDS: THIAMINE 100 MG TAB PO SCH (08:42)
[2023-02-09] MEDS: NICOTINE 7MG/24HR PATCH TRANSDERM SCH (08:43)
[2023-02-09] MEDS ORDERED: THIAMINE 100 MG TAB PO SCH (09:45)
[2023-02-09 11:06] LABS: ALT 128 U/L (10-49); AST 139 U/L (14-35); Albumin 3.8 d/dL (3.8-4.9); Albumin/Globulin Ratio 2.11 Ratio (1.60-3.17); Alkaline Phosphatase 146 U/L (41-126); BUN/Creat Ratio 11.11 Ratio (12.00-20.00); Calcium 8.7 mg/dL (8.7-10.3); Carbon Dioxide 25.6 mmol/L (21.6-31.8); Chloride 106 mmol/L (96-109); Globulin 1.8 d/dL (1.6-3.3); Glucose 93 mg/dL (70-110); Sodium 142 mmol/L (135-145); Total Bilirubin 1.1 mg/dL (0.3-1.2); Total Protein 5.6 d/dL (6.2-8.2)
[2023-02-09] MEDS: FOLIC ACID 1 MG TAB PO SCH (12:38)
--- NOTE | 2023-02-09 12:46 | P.CN ---
Psychiatric Consult - . Consult date: 02/09/23 Consult:: IDENTIFYING DATA: This patient is a 47-year-old male with significant history of alcohol use disorder who presents to the hospital on 02/08/2023 for alcohol detoxification HISTORY OF PRESENT ILLNESS: The patient presented to the hospital on 02/08/2023 for acute alcohol intoxication. The patient was most recently in hospital a few days prior to this admission for the same issue. He has been to [place] multiple times for rehab. Psychiatry has been consulted for evaluation of depression and alcohol use disorder. The patient reports that he has been drinking heavily since his teenage years. He reports that he is the son of alcoholics. He reports that in 2010, he drank till total liver failure. He reports that he first went to [place] in 2013 and desired to move to [place] from there. He states that he was initially staying sober however during the quarantine of [place] [id number] in 2019, he relapsed into substance abuse. He reports that along with alcohol, he began using methamphetamines. He does report however that he stop using methamphetamines one year ago. He does report that he has been drinking up to half a gallon of alcohol per day. In regards to his depressive symptoms, the patient reports that he is crying most days. He also endorses anhedonia, poor sleep, decreased appetite, and low motivation. He is however denying any suicidal or homicidal ideation, intention, and/or plan. He is not reporting any auditory or visual hallucinations. He does report a history of auditory and visual hallucinations in the past when he was undergoing severe withdrawal. He denies any paranoia or other delusions. He does not provide any clear history of acute manic episodes outside of substance abuse. PAST PSYCHIATRIC HISTORY: Patient has a history of alcohol use disorder and methamphetamine abuse. Patient denies being on any psychiatric medications. Patient denies any previous psychiatric hospitalizations. Patient denies any psychiatric outpatient follow-up. Patient denies any history of suicide attempts in the past. PAST MEDICAL HISTORY: Additional Past Medical History / Comment(s): liver failure, ETOH History of Any Multi-Drug Resistant Organisms: MRSA Date of last positivie culture/infection: 08/21/16 MDRO Source:: Abdomen Past Surgical History: Tonsillectomy Past Anesthesia/Blood Transfusion Reactions: No Reported Reaction Past Psychological History: No Psychological Hx Reported Smoking Status: Current every day smoker Past Alcohol Use History: Daily, Heavy Past Drug Use History: Cocaine, Marijuana, Methamphetamine ALLERGIES: NO KNOWN DRUG ALLERGIES CHEMICAL DEPENDENCY HISTORY: as per HPI. FAMILY PSYCHIATRIC/SUBSTANCE USE HISTORY: The patient reports that both his parents are alcoholics. He denies any family history of suicide. SOCIAL HISTORY: Patient was born into [facility] and raised in [place]. He reports that he moved to [facility] and 2013 after going to [place] for rehab. He is single, never , and has no children. He is currently employed at [employer]. He denies any legal problems. He reports some service. He reports no mu-ism affiliation. MENTAL STATUS EXAM: General Appearance: Patient appears to be stated age is alert, pleasant, and cooperative. Patient appears to have fair hygiene and grooming wearing hospital gown with fair eye contact. Behavior: Patient is calmly lying in bed without any agitated behavior. Speech: Patient's speech is fluent and nonpressured. Mood/Affect: Patient reports their mood is "depressed", affect is euthymic. Suicidality/Homicidality: Patient denies any suicidal or homicidal ideation, intention, and/or plan. Perceptions: Patient denies any visual hallucinations and denies any auditory hallucinations Though content/process: There is no evidence of any delusional thought content and thought process is linear and goal-directed. Memory and concentration: AOX3, grossly intact for the purposes of this session. Can spell "WORLD" backwards Judgment and insight: Fair Vital Signs Temp 98.2 F 02/09/23 07:38 Pulse 72 02/09/23 07:38 Resp 16 02/09/23 07:38 BP 149/85 02/09/23 07:38 Pulse Ox 97 02/09/23 07:38 FiO2 Intake & Output 02/08/23 02/09/23 02/09/23 18:59 06:59 18:59 Weight 77.111 kg Other: Voiding Method Toilet # Voids 1 Laboratory Results - Last 24 Hours 02/09/23 05:27 Sodium 142 Potassium 4.0 Chloride 106 Carbon Dioxide 25.6 Anion Gap 10.40 BUN 10.0 Creatinine 0.9 Est GFR (CKD-EPI) 105 BUN/Creatinine Ratio 11.11 L Glucose 93 Calcium 8.7 Total Bilirubin 1.1 AST 139 H ALT 128 H Alkaline Phosphatase 146 H Total Protein 5.6 L Albumin 3.8 Globulin 1.8 Albumin/Globulin Ratio 2.11 IMPRESSIONS: Alcohol use disorder Alcohol-induced mood disorder Generalized anxiety disorder PLAN: -Continue with your treatment for alcohol withdrawal -At this time patient DOES NOT meet criteria for inpatient psychiatric admission. The patient is not presenting with imminent risk of harm to self or others and is not overtly manic or psychotic. He will remain at chronically elevated risk due to his alcohol abuse. -Would recommend the following medication changes/additions: -Start Remeron 15 mg by mouth at bedtime for depression/insomnia/appetite stimulation. -Discussed with the patient medications to curb alcohol desire however the patient does have elevated transaminases. May consider naltrexone in the future. -Approximately 20 minutes were spent in patient with motivational interviewing and psychoeducation regarding his substance abuse. -Recommend patient go to [place] upon stabilization to continue with inpatient substance-abuse rehabilitation. -Recommend outpatient psychiatric follow-up. -Psychiatry will sign off at this time. Please call us with any questions or concerns or reconsult us if necessary. 02/09/23 12:45
[2023-02-09] MEDS ORDERED: MIRTAZAPINE 15 MG TAB PO SCH (21:00)
[2023-02-10] MEDS: SODIUM CHLORIDE 0.45% 1,000 ML IV SCH (04:21)
[2023-02-10] MEDS: LORazepam 2 MG/ML INJ IV PRN ×2 (04:21→08:20)
[2023-02-10] MEDS ORDERED: LORazepam 1 MG TAB PO PRN (05:48)
--- NOTE | 2023-02-10 06:18 | P.PN ---
Subjective Progress Note Date: 02/09/23 47-year-old male is admitted for all call intoxication. Patient has alcohol drink was last night patient is found to have about 350 for serum alcohol level. Patient wanted to go to [facility] has an appointment tomorrow to his [facility]. Patient drinks about 1 gallon of hard liquor every single day has been drinking like that for a week patient attempted multiple times to quit alcohol. Patient had significant withdrawals in the past presently doesn't have any withdrawals at this time. Patient denied any suicidal ideations. Urine drug screen is positive for benzodiazepines marijuana. Does smoke about the a pack of cigarettes per week. 02/09/2023 Patient is seen in follow-up maintained on [facility] protocol. Patient still requiring IV Ativan for withdrawals and appear somewhat improved. Patient is tolerating diet and has been open to the bathroom. Encouraged oral intake and increased activity as tolerated. Will titrate the Ativan slightly and add by mouth along with Librium. Patient has appointment with [facility] tomorrow morning and will monitor overnight for any further worsening withdrawals and discharge in a.m. Patient is agreeable with this. Review of systems: Constitutional: No reports of fatigue, fever, or chills Cardiovascular: No reports of chest pain or palpitations Respiratory: No reports of shortness of breath or cough GI: No reports of nausea, vomiting, or diarrhea : No reports of dysuria or retention Neurovascular: No reports of weakness or numbness All medications have been reviewed PHYSICAL EXAMINATION: GENERAL: The patient is alert and oriented x3, not in any acute distress. Well developed, well nourished. HEENT: Pupils are round and equally reacting to light. EOMI. No scleral icterus. No conjunctival pallor. Normocephalic, atraumatic. No pharyngeal erythema. No thyromegaly. CARDIOVASCULAR: S1 and S2 present. No murmurs, rubs, or gallops. PULMONARY: Chest is clear to auscultation, no wheezing or crackles. ABDOMEN: Soft, nontender, nondistended, normoactive bowel sounds. No palpable organomegaly. MUSCULOSKELETAL: No joint swelling or deformity. EXTREMITIES: No cyanosis, clubbing, or pedal edema. NEUROLOGICAL: Gross neurological examination did not reveal any focal deficits. SKIN: No rashes. Assessment: -Alcohol intoxication: Patient is more sober now continue with IV fluids with IV fluids will be switched to half-normal saline because of hyperkalemia and hypernatremia. Thiamine multivitamin supplementation -Alcohol withdrawal: Continue [facility] protocol and will add oral Ativan and Librium -Alcoholic hepatitis, trending down on repeat labs -Nicotine use and marijuana use: Counseling was provided will continue 7 g of nicotine patch -GI prophylaxis -DVT prophylaxis: Lovenox -No code Plan: Continue [facility] protocol and will add Librium taper Encourage increased activity as tolerated Encouraged oral intake Patient to call [facility] and schedule appointment for a.m. and patient will be discharged The impression and plan of care has been dictated by Margaret Lucio, Nurse Practitioner as directed. Dr. Mikhail MD I have performed a history and examination and MDM of this patient, discussed the same with the dictator, and agree with the dictator's assessment and plan as written ,documented as a scribe. Based on total visit time, I have performed more than 50% of the visit. Objective - Vital Signs Vital signs: Vital Signs Temp 98.2 F 02/09/23 07:38 Pulse 72 02/09/23 07:38 Resp 16 02/09/23 07:38 BP 149/85 02/09/23 07:38 Pulse Ox 97 02/09/23 07:38 FiO2 Intake & Output 02/08/23 02/09/23 02/09/23 18:59 06:59 18:59 Weight 77.111 kg Other: Voiding Method Toilet # Voids 1 - Labs CBC & Chem 7: 02/08/23 06:33 02/09/23 05:27 Labs: Abnormal Lab Results - Last 24 Hours (Table) 02/08/23 Range/Units 10:11 U Benzodiazepines Scrn Detected H (NotDetected) U Marijuana (THC) Screen Detected H (NotDetected)
[2023-02-10 08:13] VITALS: BP 117/73; PULSE 97; RESP 15; TEMP 97.3
[2023-02-10] MEDS: FOLIC ACID 1 MG TAB PO SCH (08:19)
[2023-02-10] MEDS: NICOTINE 7MG/24HR PATCH TRANSDERM SCH (08:19)
[2023-02-10] MEDS: PANTOPRAZOLE 40 MG/10 ML VIAL IV SCH (08:20)
[2023-02-10] MEDS: ENOXAPARIN 40 MG/0.4 ML SYRINGE SQ SCH (08:20)
[2023-02-10] MEDS: THIAMINE 100 MG TAB PO SCH (08:24)
--- NOTE | 2023-02-12 20:21 | P.DS ---
Providers Date of admission: 02/08/23 08:22 Expected date of discharge: 02/10/23 Attending physician: Aurora Coto Consults: 02/09/23 07:00 Consult Physician Routine Consulting Provider: Lonnie Funk Reason/Comments: Depression, ETOH Do you want consulting provider notified?: Yes, Notify in am Primary care physician: Jennifer Darnell [facility] Hospital Course: Final diagnosis -Alcohol intoxication -Alcohol withdrawal: Maintained on CIWA protocol -Alcoholic hepatitis, trending down -Nicotine use and marijuana use -GI prophylaxis: Lovenox -No code Discharge disposition Patient is being discharged in a stable condition with guarded prognosis to home and has an intake appointment with [facility]. Patient will follow-up with Dr. Supa Coto in the outpatient setting upon discharge. Patient is to continue with Librium taper as scheduled. Total time taken is greater than 35 minutes. Hospital course This is a 47-year-old male who was recently admitted with acute alcohol intoxication with history of severe alcohol abuse along with alcohol withdrawal maintained on CIWA protocol. Patient has had frequent hospitalizations and readmissions for this and has been at rehab 5 times. Patient will be going to [facility] and was maintained on Ativan and will start on Librium taper and continue the taper outpatient. Patient was evaluated by psychiatry not meeting criteria for inpatient psychiatric unit. Patient discharged in stabilized and will be going to [facility]. Guarded prognosis and high risk for readmissions as patient continues to be noncompliant with alcohol use. Currently no reports of chest pain, shortness of breath, or palpitations. Patient is afebrile. No reports of nausea or vomiting and patient is tolerating diet. Patient will be discharged home today. Physical exam: Gen: This is a 47-year-old male who is awake, alert and oriented 3, well- developed, well-nourished HEENT: Head is atraumatic, normocephalic. Pupils equal, round. Sclerae is anicteric. NECK: Supple. No JVD. No lymphadenopathy. No thyromegaly. LUNGS: Clear to auscultation. No wheezes or rhonchi. No intercostal retractions. HEART: Regular rate and rhythm. No murmur. ABDOMEN: Soft. Bowel sounds are present. No masses. No tenderness. EXTREMITIES: No pedal edema. No calf tenderness. NEUROLOGICAL: Patient is awake, alert and oriented x3. Cranial nerves 2 through 12 are grossly intact. Please refer to medication reconciliation sheet for a list of medications. The impression and plan of care has been dictated by Margaret Lucio, Nurse Practitioner as directed. Dr. Mikhail MD I have performed a history and examination and MDM of this patient, discussed the same with the dictator, and agree with the dictator's assessment and plan as written ,documented as a scribe. Based on total visit time, I have performed more than 50% of the visit. Patient Condition at Discharge: Stable Plan - Discharge Summary Discharge Rx Participant: Yes New Discharge Prescriptions: New Nicotine 7Mg/24Hr Patch [Habitrol] 1 patch TRANSDERM DAILY 30 Days #30 patch chlordiazePOXIDE HCl [Librium] 10 mg PO TID 3 Days #6 capsule Acetaminophen Tab [Tylenol] 650 mg PO Q6HR PRN tab PRN Reason: Mild Pain Or Fever > 100.5 QUEtiapine [SEROquel] 50 mg PO HS 30 Days #30 tab traZODone HCL 100 mg PO HS 3 Days #3 tablet Continue Folic Acid 1 mg PO DAILY #30 tablet Thiamine [Vitamin B-1] 100 mg PO DAILY #30 tab Discharge Medication List Folic Acid 1 mg PO DAILY #30 tablet 02/05/23 [Rx] Thiamine [Vitamin B-1] 100 mg PO DAILY #30 tab 02/05/23 [Rx] Acetaminophen Tab [Tylenol] 650 mg PO Q6HR PRN tab 02/10/23 [Rx] Nicotine 7Mg/24Hr Patch [Habitrol] 1 patch TRANSDERM DAILY 30 Days #30 patch 02/10/23 [Rx] QUEtiapine [SEROquel] 50 mg PO HS 30 Days #30 tab 02/10/23 [Rx] chlordiazePOXIDE HCl [Librium] 10 mg PO TID 3 Days #6 capsule 02/10/23 [Rx] traZODone HCL 100 mg PO HS 3 Days #3 tablet 02/10/23 [Rx] Follow up Appointment(s)/Referral(s): Jennifer Darnell MD [Primary Care Provider] - 1-2 days (Please call for follow- up appointment after release from [facility].) Patient Instructions/Handouts: Abuse of Alcohol (DC), Alcohol Withdrawal (DC) Activity/Diet/Wound Care/Special Instructions: Patient to go to [facility] Activity as tolerated Continue Librium taper Continue to avoid alcohol and tobacco use Follow-up with primary care provider on discharge Discharge Disposition: HOME SELF-CARE
== END 2023-02-10 13:22 | disposition home or self-care (01) ==
LOC: EC 05:40 → 6NMEDSUR 08:22 → 4SSUR 16:44
PROVIDERS: ADMIT Hospitalist; ATTEND Hospitalist
DX: F10.230 Alcohol dependence with withdrawal, uncomplicated (principal); F10.220 Alcohol dependence with intoxication, uncomplicated; F10.259 Alcohol dependence with alcohol-induced psychotic disorder, unspecified; R45.851 Suicidal ideations; F41.1 Generalized anxiety disorder; K70.10 Alcoholic hepatitis without ascites; F12.90 Cannabis use, unspecified, uncomplicated; F17.210 Nicotine dependence, cigarettes, uncomplicated; Y90.8 Blood alcohol level of 240 mg/100 ml or more
CPT/HCPCS: 96376 ×4; 96372 ×3; 96361; 96374; 96375; 99284; 36415; 93005; 80053 ×2; 83690; 83735; 85025; 85610; 80306; G0378 ×4; G0480; S4990 ×3; J2060 ×3; J3411; J2405; J1650 ×2; C9113 ×3; 80320

== ENCOUNTER → 2024-08-17 | Outpatient (CLI) | payer OTHER ==
--- NOTE | 2024-08-17 10:19 | US ---
EXAMINATION TYPE: US abdomen limited DATE OF EXAM: 08/17/2024 COMPARISON: CLINICAL INDICATION: Male, 49 years old with history of F10.10 ALCOHOL ABUSE, UNCOMPLICATED; Abnormal labs. Hx gallstone and dilated CBD TECHNIQUE: Grayscale and color Doppler imaging of the right upper quadrant was performed. FINDINGS: EXAM MEASUREMENTS: Liver Length: 14.9 cm Gallbladder Wall: 0.3 cm CBD: 1.0 cm Right Kidney: 10.8 x 5.4 x 5.3 cm Pancreas: Tail obscured by overlying bowel gas Liver: Slightly coarse compatible some mild fatty infiltration Gallbladder: Fold seen. Echogenic focus= 0.4 cm Evidence for sonographic Stern's sign: neg CBD: Dilated Right Kidney: No hydronephrosis or masses seen IMPRESSION: 1. Gallstone 2. Mild fatty infiltration liver [facility], , 08/17/2024 10:17 AM
== END | disposition home or self-care (01) ==
LOC: RADUSWWP 09:50
PROVIDERS: ATTEND Family Medicine
DX: K80.20 Calculus of gallbladder without cholecystitis without obstruction (principal); K76.0 Fatty (change of) liver, not elsewhere classified; F10.10 Alcohol abuse, uncomplicated; R74.8 Abnormal levels of other serum enzymes
CPT/HCPCS: 76705

== ENCOUNTER 2025-01-11 12:01 | Emergency (ER) | payer OTHER ==
[2025-01-11 12:16] VITALS: PULSE 65; TEMP 97.6
[2025-01-11] MEDS: SODIUM CHLORIDE 0.9% 1,000 ML IV ONE (12:46)
[2025-01-11] MEDS: ONDANSETRON 4 MG/2 ML VIAL IVP STA (12:46)
[2025-01-11] MEDS: KETOROLAC 15 MG/ML 1 ML VIAL IVP STA (12:47)
[2025-01-11] MEDS: ACETAMINOPHEN TAB 500 MG TAB PO STA (12:47)
--- NOTE | 2025-01-11 12:48 | ED ---
Abdominal Pain HPI - General Chief Complaint: Abdominal Pain Stated Complaint: L sided flank pain Time Seen by Provider: 01/11/25 12:22 Source: patient, RN notes reviewed Mode of arrival: ambulatory Limitations: no limitations - History of Present Illness Initial Comments: This is a 49-year-old male who presents to the emergency department for abdominal pain. States that he was woken up around 7 AM with pain in his left lower quadrant radiating into his back. Reports some nausea but no vomiting. He has a history of multiple kidney stones and states that this feels the same. Most recent one was about 4 years ago. He has been able to pass most of them on his own. Denies any fevers or chills. MD Complaint: abdominal pain, flank pain - Related Data Previous Rx's Medication Instructions Recorded Folic Acid 1 mg PO DAILY #30 tablet 02/05/23 Thiamine [Vitamin B-1] 100 mg PO DAILY #30 tab 02/05/23 Acetaminophen Tab [Tylenol] 650 mg PO Q6HR PRN tab 02/10/23 Nicotine 7Mg/24Hr Patch [Habitrol] 1 patch TRANSDERM DAILY 30 Days 02/10/23 #30 patch QUEtiapine [SEROquel] 50 mg PO HS 30 Days #30 tab 02/10/23 chlordiazePOXIDE HCl [Librium] 10 mg PO TID 3 Days #6 capsule 02/10/23 traZODone HCL 100 mg PO HS 3 Days #3 tablet 02/10/23 Ketorolac [Toradol] 10 mg PO Q6HR PRN #15 tab 01/11/25 Ondansetron Odt [Zofran Odt] 4 mg PO Q8HR PRN #15 tab 01/11/25 Tamsulosin [Flomax] 0.4 mg PO DAILY 5 Days #5 cap 01/11/25 Allergies Allergy/AdvReac Type Severity Reaction Status Date / Time No Known Allergies Allergy Verified 01/11/25 12:16 Review of Systems ROS Statement: Those systems with pertinent positive or pertinent negative responses have been documented in the HPI. ROS Other: All systems not noted in ROS Statement are negative. Past Medical History Additional Past Medical History / Comment(s): liver failure, ETOH History of Any Multi-Drug Resistant Organisms: MRSA Date of last positivie culture/infection: 08/21/16 MDRO Source:: Abdomen Past Surgical History: Tonsillectomy Past Anesthesia/Blood Transfusion Reactions: No Reported Reaction Past Psychological History: No Psychological Hx Reported Smoking Status: Current every day smoker Past Alcohol Use History: Daily, Heavy Past Drug Use History: Cocaine, Marijuana, Methamphetamine - Past Family History Family Family Medical History: No Reported History General Exam Limitations: no limitations General appearance: alert, in no apparent distress Head exam: Present: atraumatic, normocephalic, normal inspection Respiratory exam: Present: normal lung sounds bilaterally. Absent: respiratory distress, wheezes, rales, rhonchi, stridor Cardiovascular Exam: Present: regular rate, normal rhythm GI/Abdominal exam: Present: soft, tenderness (LLQ). Absent: distended Back exam: Present: CVA tenderness (L). Absent: CVA tenderness (R) Neurological exam: Present: alert, oriented X3, CN II-XII intact Psychiatric exam: Present: normal affect, normal mood Skin exam: Present: warm, dry, intact, normal color. Absent: rash Course Vital Signs 01/11/25 12:12 Temperature 97.6 F Pulse Rate 65 Respiratory 22 Rate Blood Pressure 184/99 O2 Sat by Pulse 98 Oximetry Medical Decision Making - Medical Decision Making This is a 49 year old male who presents to the emergency department for abdominal pain. Was pt. sent in by a medical professional or institution? @ -No Did you speak to anyone other than the patient for history? @ -No Did you review nursing and triage notes? @ -Yes, and I agree, it is accurate with regards to the patient's symptoms. Were old charts reviewed? @ -No Differential Diagnosis? @ -Differential Abdominal Pain Men: Appendicitis, cholecystitis, diverticulosis, ischemic bowel, pancreatitis, hepatitis, UTI, gastroenteritis, AAA, incarcerated hernia, bowel obstruction, constipation, inflammatory bowel, hepatitis, peptic ulcer disease, splenic infarction, perforated viscus, testicular torsion, this is not meant to be an all-inclusive list EKG interpreted by me (3pts min.)? @ -Not obtained X-rays interpreted by me (1pt min.)? @ -Not obtained CT interpreted by me (1pt min.)? @ -CT scan of the abdomen and pelvis obtained. My interpretation identifies a left ureteral calculus. U/S interpreted by me (1pt. min.)? @ -Not obtained What testing was considered but not performed? (CT, X-rays, U/S, labs)? Why? @ -None What meds were considered but not given? Why? @ -None Did you discuss the management of the patient with other professionals? @ -No Did you reconcile home meds? @ -No Was smoking cessation discussed for >3mins.? @ -I discussed smoking cessation for greater than 3 minutes. The risk of smoking were discussed with the patient including but not limited to risks of cancer, stroke, coronary artery disease and COPD. Also discussed with patient were multiple methods of quitting smoking. Lastly we discussed the financial cost of smoking. Was critical care preformed (if so, how long)? @ -No Were there social determinants of health that impacted care today? How? (Homelessness, low income, unemployed, alcoholism, drug addiction, transportation, low edu. Level, literacy, decrease access to med. care, nursing home, rehab)? @ -Alcoholism, potentially contributing to the pancreatitis and his pain. Was there de-escalation of care discussed even if they declined? (Discuss DNR or withdrawal of care, Hospice)? @ -No What co-morbidities impacted this encounter? (DM, HTN, Smoking, COPD, CAD, Cancer, CVA, Hep., AIDS, mental health diagnosis, sleep apnea, morbid obesity)? @ -Kidney stones, smoking, alcoholism Was patient admitted / discharged? @ -Discharged. Lab work demonstrates a mildly elevated lactic acid of 2.3. LFTs mildly elevated and stable when compared with prior. Lipase elevated at 1117 suggestive of acute pancreatitis. Urinalysis demonstrates blood but is negative for signs of infection. CT scan of the abdomen and pelvis demonstrates mild left hydroureteronephrosis with an obstructing 5 mm calculus at the UVJ. Findings reviewed with the patient. Symptoms well-controlled with Toradol and Tylenol. 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 He has no history of gallstones or gallstones identified on imaging. Given that he has both the pancreatitis and obstructing stone I did offer admission. However, patient declined. States that he does not have insurance and his symptoms have entirely resolved. He was advised to stop drinking alcohol with regards to the pancreatitis. Toradol, Zofran, and Flomax prescribed for further management of the ureteral calculus and information for urology follow-up was provided. Patient discharged home in stable condition with strict return parameters. Case discussed with ED attending Dr. Soto. Return precautions reviewed in depth, the patient is instructed to return to the emergency department with any new, worsening, or concerning symptoms. Patient verbalized understanding. Undiagnosed new problem with uncertain prognosis? @ -None Drug Therapy requiring intensive monitoring for toxicity (Heparin, Nitro, Insulin, Cardizem)? @ -None Were any procedures done? @ -None Diagnosis/symptom? @ -Left ureteral calculus, pancreatitis Acute, or Chronic, or Acute on Chronic? @ -Acute Uncomplicated (without systemic symptoms) or Complicated (systemic symptoms)? @ -Uncomplicated Side effects of treatment? @ -None Exacerbation, Progression, or Severe Exacerbation] @ -Not applicable Poses a threat to life or bodily function? @ -No - Lab Data Result diagrams: 01/11/25 12:32 01/11/25 12:32 Lab Results 01/11/25 01/11/25 01/11/25 Range/Units 12:32 12:32 12:32 WBC 7.26 (4.50-10.00) 10*3/uL RBC 5.22 (4.40-5.60) 10*6/uL Hgb 15.9 (13.0-17.0) g/dL Hct 46.1 (39.6-50.0) % MCV 88.3 (80.0-97.0) fL MCH 30.5 (27.0-32.0) pg MCHC 34.5 (32.0-37.0) g/dL Plt Count 133 L (140-440) 10*3/uL MPV 10.9 (9.5-12.2) fL Immature Gran % (Auto) 0.6 % Neutrophils % 79.1 % Lymphocytes % 12.4 % Monocytes % 6.1 % Eosinophils % 1.1 % Basophils % 0.7 % Immature Gran # 0.04 (0.00-0.04) 10*3/uL Neutrophils # 5.75 (1.80-7.70) 10*3/uL Lymphocytes # 0.90 (0.90-5.00) 10*3/uL Monocytes # 0.44 (0.20-1.00) 10*3/uL Eosinophils # 0.08 (0.04-0.35) 10*3/uL Basophils # 0.05 (0.00-0.10) 10*3/uL Immature Plt Fraction 5.5 (1.1-6.1) % Sodium 144 (137-145) mmol/L Potassium 3.8 (3.5-5.1) mmol/L Chloride 109 H (98-107) mmol/L Carbon Dioxide 24 (22-30) mmol/L Anion Gap 11 mmol/L BUN 9 (9-20) mg/dL Creatinine 1.44 H (0.66-1.25) mg/dL Est GFR (CKD-EPI)AfAm 65 (>60 ml/min/1.73 sqM) Est GFR (CKD-EPI)NonAf 56 (>60 ml/min/1.73 sqM) Glucose 110 H (74-99) mg/dL Plasma Lactic Acid Romeo 2.3 H* (0.7-2.0) mmol/L Calcium 8.7 (8.4-10.2) mg/dL Total Bilirubin 1.4 H (0.2-1.3) mg/dL AST 115 H (17-59) U/L ALT 82 H (4-49) U/L Alkaline Phosphatase 187 H (38-126) U/L Total Protein 7.3 (6.3-8.2) g/dL Albumin 4.6 (3.5-5.0) g/dL Amylase 208 H (30-110) U/L Lipase 1117 H (23-300) U/L Urine Color Urine Appearance (Clear) Urine pH (5.0-8.0) Ur Specific [place] (1.001-1.035) Urine Protein (Negative) Urine Glucose (UA) (Negative) Urine Ketones (Negative) Urine Blood (Negative) Urine Nitrite (Negative) Urine Bilirubin (Negative) Urine Urobilinogen (<2.0) mg/dL Ur Leukocyte Esterase (Negative) Urine RBC (0-5) /hpf Urine WBC (0-5) /hpf Urine Mucus (None) /hpf 01/11/25 Range/Units 12:33 WBC (4.50-10.00) 10*3/uL RBC (4.40-5.60) 10*6/uL Hgb (13.0-17.0) g/dL Hct (39.6-50.0) % MCV (80.0-97.0) fL MCH (27.0-32.0) pg MCHC (32.0-37.0) g/dL Plt Count (140-440) 10*3/uL MPV (9.5-12.2) fL Immature Gran % (Auto) % Neutrophils % % Lymphocytes % % Monocytes % % Eosinophils % % Basophils % % Immature Gran # (0.00-0.04) 10*3/uL Neutrophils # (1.80-7.70) 10*3/uL Lymphocytes # (0.90-5.00) 10*3/uL Monocytes # (0.20-1.00) 10*3/uL Eosinophils # (0.04-0.35) 10*3/uL Basophils # (0.00-0.10) 10*3/uL Immature Plt Fraction (1.1-6.1) % Sodium (137-145) mmol/L Potassium (3.5-5.1) mmol/L Chloride (98-107) mmol/L Carbon Dioxide (22-30) mmol/L Anion Gap mmol/L BUN (9-20) mg/dL Creatinine (0.66-1.25) mg/dL Est GFR (CKD-EPI)AfAm (>60 ml/min/1.73 sqM) Est GFR (CKD-EPI)NonAf (>60 ml/min/1.73 sqM) Glucose (74-99) mg/dL Plasma Lactic Acid Romeo (0.7-2.0) mmol/L Calcium (8.4-10.2) mg/dL Total Bilirubin (0.2-1.3) mg/dL AST (17-59) U/L ALT (4-49) U/L Alkaline Phosphatase (38-126) U/L Total Protein (6.3-8.2) g/dL Albumin (3.5-5.0) g/dL Amylase (30-110) U/L Lipase (23-300) U/L Urine Color Light Yellow Urine Appearance Clear (Clear) Urine pH 5.5 (5.0-8.0) Ur Specific [place] 1.017 (1.001-1.035) Urine Protein Negative (Negative) Urine Glucose (UA) Negative (Negative) Urine Ketones Negative (Negative) Urine Blood Moderate H (Negative) Urine Nitrite Negative (Negative) Urine Bilirubin Negative (Negative) Urine Urobilinogen <2.0 (<2.0) mg/dL Ur Leukocyte Esterase Negative (Negative) Urine RBC 25 H (0-5) /hpf Urine WBC 2 (0-5) /hpf Urine Mucus Occasional H (None) /hpf - Radiology Data Radiology results: report reviewed, image reviewed Disposition Clinical Impression: Left ureteral calculus, Pancreatitis, Nicotine dependence Disposition: HOME SELF-CARE Instructions (If sedation given, give patient instructions): Pancreatitis (ED), Renal Colic (ED), Ureteral Stones (ED) Additional Instructions: Return to the emergency department with any new, worsening, or concerning symptoms. Take the Toradol with Tylenol as needed for pain relief. If you choose to take the Toradol, do not take any other anti-inflammatories such as ibuprofen, take one or the other. Take the Flomax daily until your pain resolves or you know that you passed the stone. Take the Zofran up to every 8 hours as needed for nausea and vomiting. Follow-up with urology as listed below. Follow up with your primary care provider in 1-2 days. Prescriptions: Tamsulosin [Flomax] 0.4 mg PO DAILY 5 Days #5 cap Ketorolac [Toradol] 10 mg PO Q6HR PRN #15 tab PRN Reason: Pain Ondansetron Odt [Zofran Odt] 4 mg PO Q8HR PRN #15 tab PRN Reason: Nausea And Vomiting Is patient prescribed a controlled substance at d/c from ED?: No Referrals: Jennifer Darnell MD [Primary Care Provider] - 1-2 days Steve Zamorano MD [STAFF PHYSICIAN] - 1-2 days Time of Disposition: 13:36
[2025-01-11 12:59] LABS: Bilirubin,Urine Negative (Negative); Blood,Urine Moderate (Negative); Color,Urine Light Yellow; Glucose,Urine (UA) Negative (Negative); Ketones,Urine Negative (Negative); Leukocyte Esterase,Urine Negative (Negative); Mucus,Urine Occasional /hpf; Nitrite,Urine Negative (Negative); PH, Urine 5.5 (5.0-8.0); Protein,Urine Negative (Negative); RBC,Urine 25 /hpf (0-5); Specific Gravity,Urine 1.017 (1.001-1.035); Urobilinogen,Urine <2.0 mg/dL (<2.0); WBC,Urine 2 /hpf (0-5)
[2025-01-11 13:06] LABS: ALT 82 U/L (4-49); AST 115 U/L (17-59); African American GFR (CKD) 65 (>60 ml/min/1.73 sqM); Albumin 4.6 g/dL (3.5-5.0); Alkaline Phosphatase 187 U/L (38-126); Amylase 208 U/L (30-110); Anion Gap 11 mmol/L; Blood Urea Nitrogen 9 mg/dL (9-20); Calcium 8.7 mg/dL (8.4-10.2); Carbon Dioxide 24 mmol/L (22-30); Chloride 109 mmol/L (98-107); Glucose 110 mg/dL (74-99); Lipase 1117 U/L (23-300); Non-African American GFR(CKD) 56 (>60 ml/min/1.73 sqM); Potassium 3.8 mmol/L (3.5-5.1); Sodium 144 mmol/L (137-145); Total Protein 7.3 g/dL (6.3-8.2)
[2025-01-11 13:07] LABS: Basophils # (A) 0.05 10*3/uL (0.00-0.10); Basophils % (A) 0.7 %; Eosinophils # (A) 0.08 10*3/uL (0.04-0.35); Eosinophils % (A) 1.1 %; HCT 46.1 % (39.6-50.0); HGB 15.9 g/dL (13.0-17.0); Immature Platelet Fraction 5.5 % (1.1-6.1); Lymphocytes # (A) 0.90 10*3/uL (0.90-5.00); Lymphocytes % (A) 12.4 %; MCH 30.5 pg (27.0-32.0); MCHC 34.5 g/dL (32.0-37.0); MCV 88.3 fL (80.0-97.0); Monocytes # (A) 0.44 10*3/uL (0.20-1.00); Monocytes % (A) 6.1 %; Neutrophils # (A) 5.75 10*3/uL (1.80-7.70); Neutrophils % (A) 79.1 %; Platelet Count 133 10*3/uL (140-440); RBC 5.22 10*6/uL (4.40-5.60); RDW 13.8 % (11.5-14.5); WBC 7.26 10*3/uL (4.50-10.00)
--- NOTE | 2025-01-11 13:20 | CT ---
EXAMINATION TYPE: CT abdomen pelvis wo con CT DLP: 839.2 mGycm, Automated exposure control for dose reduction was used. DATE OF EXAM: 01/11/2025 1:16 PM COMPARISON: Abdominal ultrasound 08/17/2024, 12/30/2021 CLINICAL INDICATION:Male, 49 years old with history of Left flank pain; left flank pain. hx of kidney stones TECHNIQUE: Standard CT of the abdomen and pelvis without IV or oral contrast. Lack of IV or oral co ntrast limits evaluation of solid and hollow organ viscera. Coronal and sagittal reformats were perfo rmed. FINDINGS: LOWER CHEST: Unremarkable noncontrast appearance ABDOMEN LIVER: Diffusely hypoattenuating parenchyma. Some surface nodularity suggested. GALLBLADDER AND BILE DUCTS: Unremarkable noncontrast appearance PANCREAS: Unremarkable noncontrast appearance SPLEEN: Unremarkable noncontrast appearance ADRENAL GLANDS: Unremarkable noncontrast appearance. KIDNEYS AND URETERS: No right-sided hydronephrosis or renal calculus. Duplex left collecting system w ith the ureters connecting within the proximal region. Mild left hydroureteronephrosis with an obstru cting 5 mm calculus at the ureterovesical junction. No other left renal calculi. Left perinephric and periureteral fat stranding. PELVIS BLADDER: Incompletely distended but grossly unremarkable. REPRODUCTIVE: Coarse calcifications of the prostate gland are identified. ABDOMEN & PELVIS STOMACH AND BOWEL: Small hiatal hernia, duodenum is unremarkable. Few scattered colonic diverticula w ithout evidence for acute diverticulitis. The appendix is within normal limits. No focal bowel wall t hickening or surrounding inflammatory changes. No evidence of bowel obstruction. PERITONEUM: No evidence of pneumoperitoneum or free fluid. VASCULATURE: No evidence of aortic aneurysm. Dilated left gonadal vein consistent with a varicocele. MUSCULOSKELETAL: No acute osseous abnormalities. Degenerative changes of the right SI joint with ante rior bridging. LYMPH NODES: No gross evidence for lymphadenopathy. SOFT TISSUE/ABDOMINAL WALL: Unremarkable IMPRESSION: 1. Mild left hydroureteronephrosis with obstructing 5 mm calculus at ureterovesical junction. Duplic ated left collecting system. 2. Severe hepatic steatosis with nodular contour. Correlate clinically for cirrhosis from LUCIA. 3. Left-sided varicocele. 4. Scattered colonic diverticulosis without evidence for acute diverticulitis. [facility], , 01/11/2025 1:18 PM
[2025-01-11] MEDS: TAMSULOSIN 0.4 MG CAP.ER.24H PO STA (13:51)
[2025-01-11] MEDS: ACET/COD 300 MG/30 MG STARTER PACK TAB BTL PO STA (13:52)
[2025-01-11] MEDS: ONDANSETRON 4 MG ODT STARTER PACK TAB BTL PO STA (13:52)
[2025-01-11 13:58] VITALS: BP 164/88; RESP 20
== END 2025-01-11 13:59 | disposition home or self-care (01) ==
LOC: EC 12:01
DX: K57.30 Diverticulosis of large intestine without perforation or abscess without bleeding (principal); K76.0 Fatty (change of) liver, not elsewhere classified; K85.90 Acute pancreatitis without necrosis or infection, unspecified; N13.2 Hydronephrosis with renal and ureteral calculous obstruction; I86.1 Scrotal varices; F17.200 Nicotine dependence, unspecified, uncomplicated
CPT/HCPCS: 36415; 80053; 82150; 83605; 83690; 85025; 81001; 74176; 99284; 96374; 96375; 96361; J2405; J1885; S0119